=== PATIENT | female | born 1960 | race Two or more races ===

== ENCOUNTER 2022-02-18 10:06 | Outpatient (REF) | payer OTHER, SELFPAY ==
--- NOTE | ~2022-02-18 | XR_ITS ---
EXAMINATION: XR ELBOW, LEFT CLINICAL INFORMATION: Pain COMPARISON: None TECHNIQUE: Three views of the left elbow. FINDINGS: Age-indeterminate osseous fragment adjacent to the lateral epicondyle could reflect age-indeterminate avulsion fracture. Mild degenerative changes of the elbow with triceps tendon enthesopathy. No joint effusion. No dislocation. XR/XR elbow LT 2V IMPRESSION: Age-indeterminate osseous fragment adjacent to the lateral epicondyle could reflect age-indeterminate avulsion fracture. Comment correlation with history of trauma and correlation with point tenderness. No joint effusion is present. Mild degenerative changes of the elbow with triceps tendon enthesopathy.
--- NOTE | ~2022-02-18 | XR_ITS ---
EXAMINATION: XR hand RT min 3V, XR hand LT min 3V CLINICAL INFORMATION: Raynaud's syndrome without gangrene bilateral hand pain worst at second distal digit COMPARISON: None TECHNIQUE: 3 views of the bilateral hands. FINDINGS: Right hand: Fusion of the third DIP joint in flexion. There is soft tissue defect overlying the second distal phalanx with the tuft of the second distal phalanx extending to at least the skin surface without appreciable overlying soft tissue. No evelyn underlying erosion. No acute fracture. Joint spaces are otherwise maintained. Left hand: Fusion of the second DIP joint in flexion. There is osteolysis of the tuft of the second and third distal phalanges, with thinning of the overlying soft tissues. A 3 mm lucent lesion with narrow margins and central sclerosis is noted in the base of the third middle phalanx. Joint spaces are otherwise maintained. No acute fracture or dislocation. XR/XR hand RT min 3V IMPRESSION: Right hand: * Soft tissue defect overlying the right second distal phalanx, with the tuft of the second distal phalanx extending to at least the skin surface without appreciable overlying soft tissue. Recommend correlation with direct visualization. No evelyn underlying erosion however MR would be more sensitive for evaluation of any clinical concern for osteomyelitis. * Fusion of the right third DIP joint in flexion. Left hand: * There is osteolysis of the tuft of the second and third distal phalanges, with thinning of the overlying soft tissues. One differential consideration could exclude sequelae of Raynaud's syndrome given reported clinical history. * Fusion of the second DIP joint in flexion. * A 3 mm lucent lesion with narrow margins and central sclerosis in the base of the third middle phalanx, possibly reflective of an osteoid osteoma although patient is not of the typical age for this finding. Recommend CT and for further evaluation.
[2022-02-18 11:00] LABS: MANUAL DIFF FLAG NO
[2022-02-18 11:21] LABS: Basophils Percent Auto 0.4 % (0-2); Eosinophils Absolute Auto 0.1 X10*3/uL (0.0-0.4); Eosinophils Percent Auto 1.2 % (0-4); Hematocrit 34.5 % (37.0-47.0); Imm Gran Abs Auto 0.01 X10*3/uL (0.00-0.03); Imm Gran Pct Auto 0.1 % (0.0-0.4); Lymphocytes Absolute Auto 2.5 X10*3/uL (1.2-4.9); Lymphocytes Percent Auto 36.7 % (20-40); Mean Corpuscular HGB Conc 31.9 g/dl (31.0-35.0); Mean Corpuscular Hemoglobin 27.9 pg (27.0-33.0); Mean Corpuscular Volume 87.6 fL (80.0-98.0); Mean Platelet Volume 10.2 fL (9.4-12.3); Monocytes Absolute Auto 0.7 X10*3/uL (0.1-1.2); Monocytes Percent Auto 9.5 % (2-11); Neutrophils Absolute Auto 3.6 x10*3/uL (2.0-8.3); Neutrophils Percent Auto 52.1 % (45-73); Platelet Count 309 X10*3/uL (160-400); Red Blood Count 3.94 X10*6/uL (4.20-5.50); Red Cell Distribution Width 14.8 % (11.0-16.0); White Blood Count 6.9 X10*3/uL (4.8-10.8)
[2022-02-18 12:03] LABS: Alanine Aminotransferase 10 U/L (0-31); Albumin Level 4.3 g/dL (3.5-5.0); Alkaline Phosphatase 72 U/L (39-117); Anion Gap 12 (12-20); Aspartate Amino Transferase 19 U/L (5-31); Bilirubin Total 0.4 mg/dL (0.0-1.0); Blood Urea Nitrogen 8 mg/dL (9-16); Calcium 9.3 mg/dL (8.4-10.2); Carbon Dioxide 24 mmol/L (22-29); Chloride 107 mmol/L (96-108); Estimated Glomerular Filt Rate > 60; Glucose Random 99 mg/dL (60-115); Potassium 4.4 mmol/L (3.3-5.1); Sodium 139 mmol/L (135-145); Total Protein 7.5 g/dL (6.5-8.0)
[2022-02-18 12:28] LABS: TSH reflex Free T4 1.31 uIU/mL (0.32-4.0)
[2022-02-20 14:07] LABS: Anti-Centromere B Antibodies >8.0 POS AI (<1.0 NEG)
[2022-02-21 13:36] LABS: Antibody to SS-A Antigen <1.0 NEG AI (<1.0 NEG); Antibody to SS-B Antigen <1.0 NEG AI (<1.0 NEG); Scleroderma 70 Antibody <1.0 NEG AI (<1.0 NEG)
== END 2022-02-18 10:07 | disposition home or self-care (01) ==
LOC: HO.LAB 10:06
PROVIDERS: Visit Provider Nurse Practitioner Family
DX: M25.522 Pain in left elbow (principal); I73.00 Raynaud's syndrome without gangrene; L94.3 Sclerodactyly
CPT/HCPCS: 36415; 73070; 73130; 80053; 84443; 85025; 86038; 86235; 99202

== ENCOUNTER → 2022-03-06 10:47 | Outpatient (BNVA) | payer OTHER, SELFPAY | PROVIDERS: PCP Physician Assistant Medical; Visit Provider Nurse Practitioner Family | DX: I73.00 Raynaud's syndrome without gangrene (principal); L94.3 Sclerodactyly; L98.499 Non-pressure chronic ulcer of skin of other sites with unspecified severity; Z79.899 Other long term (current) drug therapy | CPT/HCPCS: 99212 ==

== ENCOUNTER 2022-03-19 14:51 | Outpatient (REF) | payer OTHER, SELFPAY ==
--- NOTE | ~2022-03-19 | MR_ITS ---
EXAMINATION: MR OF THE HAND WITH AND WITHOUT CONTRAST, RIGHT CLINICAL INFORMATION: Raynaud's syndrome without gangrene. Second digit wound. Pain. Redness. Swelling. COMPARISON: Radiographs dated 02/18/2022. TECHNIQUE: Multiplanar MR imaging was obtained through the right hand before and after intravenous administration of 5.5 mL Gadavist. FINDINGS: There is a chronic deformity at the long finger distal interphalangeal joint with palmar subluxation of the distal phalanx and remodeling of the articular surfaces at both the middle phalangeal head and distal phalangeal base. There is marrow edema signal and enhancement throughout the distal phalanx and at the distal half of the middle phalangeal base. There is low signal intensity within these regions on T1-weighted images as well as enhancement on postcontrast images, raising the possibility of osteomyelitis. Degenerative arthritis is felt to be more likely, however. Sensitivity for an overlying skin wound in this region is limited on these images due to the flexion at this level, though there is thinning of the dorsal soft tissues at the level of the middle phalangeal head. A tear of the extensor tendon in this region is presumed, though not well seen. Flexor tendon is intact. There is a wound at the distal aspect of the index finger soft tissues around the distal phalanx extending to the depth of bone. There is underlying intense edema signal and postcontrast enhancement in the majority of the distal phalanx with loss of normal fat signal intensity throughout, sparing the subarticular portion of the distal phalangeal base, consistent with osteomyelitis. No findings of septic arthritis at the DIP joint. The phalanges of the thumb, small finger, and ring finger appear relatively well preserved, though subcutaneous edema and mild enhancement are noted in the soft tissues in these regions. No abscesses are identified. Tendons appear intact at these digits without tenosynovitis. Osteoarthritis is suspected at the midcarpal and radiocarpal joints, though only partially imaged on this study. MR/MR hand RT wo/w con IMPRESSION: 1. Soft tissue wound at the distal margin of the index finger with underlying osteomyelitis throughout the distal phalanx. 2. Chronic flexion deformity and articular surface remodeling at the long finger DIP joint, likely with disruption of the extensor tendon in this region. Periarticular marrow signal abnormalities at the DIP joint involve both the middle and distal phalanges and may be degenerative in nature, though osteomyelitis is possible. Query the presence of a dorsal skin wound in this region as osteomyelitis of the phalanges would be much more likely in that setting.
== END 2022-03-19 14:52 | disposition home or self-care (01) ==
LOC: HO.MRI 14:51
PROVIDERS: Visit Provider Nurse Practitioner Family
DX: I73.00 Raynaud's syndrome without gangrene (principal); L94.3 Sclerodactyly; L98.499 Non-pressure chronic ulcer of skin of other sites with unspecified severity; K21.9 Gastro-esophageal reflux disease without esophagitis
CPT/HCPCS: 73220; A9585

== ENCOUNTER 2022-04-21 08:51 | Outpatient (REF) | payer OTHER, SELFPAY ==
--- NOTE | ~2022-04-21 | FL_ITS ---
EXAMINATION: FL BARIUM SWALLOW CLINICAL INFORMATION: Gastroesophageal reflux COMPARISON: None TECHNIQUE: Barium swallow examination is performed using fluoroscopic evaluation in addition to multiple fluoroscopic spot views. The patient is imaged both upright and prone and using both thick and thin sulfate along with effervescent granules. Barium tablet was also administered. Fluoroscopy time: 1 minute minutes DAP: 3.3 Gycm2 Images: 43 FINDINGS: The swallowing mechanism is normal. No aspiration or penetration is seen. Esophageal motility is normal. There is a small sliding-type hiatal hernia. There is significant gastroesophageal reflux. No mass or stricture is seen. The barium tablet passed freely into the stomach. FL/FL barium swallow IMPRESSION: Gastroesophageal reflux. Small sliding-type hiatal hernia.
== END 2022-04-21 08:52 | disposition home or self-care (01) ==
LOC: HO.XRAY 08:51
PROVIDERS: Visit Provider Physician Assistant
DX: I73.00 Raynaud's syndrome without gangrene (principal); K21.9 Gastro-esophageal reflux disease without esophagitis; L94.3 Sclerodactyly
CPT/HCPCS: 74220

== ENCOUNTER 2022-04-30 09:05 | Outpatient (REF) | payer OTHER, SELFPAY ==
--- NOTE | ~2022-04-30 | XR_ITS ---
EXAMINATION: XR HAND, RIGHT CLINICAL INFORMATION: Pain. COMPARISON: Radiograph of the right hand dated from 02/18/2022. TECHNIQUE: PA, lateral, and oblique views of the right hand. FINDINGS: Again noted soft tissue defect overlying the right second distal phalanx, with progression of deformity and erosion of the tuft of the second distal phalanx, worrisome for infection. Again noted ankylosis with flexion of the third DIP. Unchanged 2 mm osseous fragment abutting the ventral aspect of the tuft of the third distal phalanx, likely an osteophyte. There is decreased bone mineralization and multifocal osteoarthritis. The carpal rows are maintained. No radiopaque foreign bodies are noted. XR/XR hand RT min 3V IMPRESSION: 1. Cortical erosion and distortion of the tuft of the second distal phalanx concerning for osteomyelitis in the setting of adjacent soft tissue defect. Correlate clinically. 2. Stable ankylosis with flexion of the third DIP.
== END 2022-04-30 09:06 | disposition home or self-care (01) ==
LOC: HO.HOSX 09:05
PROVIDERS: Visit Provider Orthopaedic Surgery
DX: M79.641 Pain in right hand (principal)
CPT/HCPCS: 73130

== ENCOUNTER 2022-05-29 06:01 | Day surgery (SDC) | payer OTHER, SELFPAY ==
[2022-05-26 12:02] VITALS: BMI 25.4
--- NOTE | 2022-05-28 10:14 | P.CONAN_ITS ---
Documented by User: Vivi Rubin NP 05/28/22 10:15 HPI - Anesthesia Eval Consult details Narrative: 62yo F for Right Index DIP level Finger Amputation and I&D PMFSH Active Problems Active Problems: All Active Problems (Updated 05/28/22 @ 08:45 by Eden Paul RN) Anxiety (Acute) Depression (Acute) Raynauds disease (Acute) Sclerodactyly (Acute) Chronic GERD (Acute) Bloating (Acute) Anemia (Acute) Open wound of right index finger (Acute) Osteomyelitis of finger of right hand (Acute) Past Medical History Medical History (Updated 05/29/22 @ 06:23 by Barbara Medel) Hypothyroidism Rheumatoid arthritis Scleroderma Surgical History Surgical History (Updated 05/29/22 @ 06:18 by Barbara Medel) H/O colonoscopy H/O neck surgery Social History Social History Household Members: Family Housing: House Are you a primary care coordinator to a significant other at home: No Do you presently have visiting nurse or other home services: No Alcohol intake: current Alcohol intake frequency: a few times a month Alcohol type: beer Patient Tobacco Use Status: Never used Tobacco e-Cigarette/Vaping Use: Never Used Use of substances other than those prescribed or required for medical reasons: No Are you DNR?: No Advance Directives: No Advance Directives Information Provided: Yes service: No Current occupational status: employed 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 Allergy/AdvReac Type Severity Reaction Status Date / Time No Known Allergies Allergy Verified 05/29/22 06:19 Home Medications Medication Instructions Recorded Confirmed Last Taken Type alprazolam 0.5 mg tablet (Xanax) 0.5 mg PO DAILY PRN Anxiety 02/18/22 05/29/22 Unknown History escitalopram oxalate 20 mg tablet 20 mg PO DAILY 02/18/22 05/29/22 Unknown History levothyroxine 88 mcg capsule 88 mcg PO DAILY 02/18/22 05/29/22 Unknown History gabapentin 300 mg capsule 300 mg PO TID PRN Breakthrough Pain 04/22/22 05/29/22 Unknown History ibuprofen 600 mg tablet 600 mg PO BID PRN Pain 04/22/22 05/29/22 Unknown History amitriptyline 25 mg tablet 25 mg PO BEDTIME 04/30/22 05/29/22 Unknown History Exam Exam Date and Time: May 28, 2022 1014 Height,Weight and Vital Signs: Height 5 ft Weight 58.967 kg Pertinent Lab Results Pertinent Lab Results: Laboratory Tests 02/18/22 02/18/22 10:57 10:57 WBC 6.9 Hgb 11.0 L Hct 34.5 L Plt Count 309 Sodium 139 Potassium 4.4 Chloride 107 Carbon Dioxide 24 BUN 8 L Creatinine 0.77 Assessment and Plan Assessment Anesthesia Assessment: Chart Reviewed Documented by User: Litzy Ruffin MD 05/29/22 07:09 [facility] Past Medical History Medical History (Updated 05/29/22 @ 06:23 by Barbara Medel) Hypothyroidism Rheumatoid arthritis Scleroderma Family History Family history of problems with anesthesia: No Surgical History Surgical History (Updated 05/29/22 @ 06:18 by Barbara Medel) H/O colonoscopy H/O neck surgery History of Problems with Anesthesia: No Social History Social History Household Members: Family Housing: House Are you a primary care coordinator to a significant other at home: No Do you presently have visiting nurse or other home services: No Alcohol intake: current Alcohol intake frequency: a few times a month Alcohol type: beer Patient Tobacco Use Status: Never used Tobacco e-Cigarette/Vaping Use: Never Used Use of substances other than those prescribed or required for medical reasons: No Are you DNR?: No Advance Directives: No Advance Directives Information Provided: Yes service: No Current occupational status: employed 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 Allergy/AdvReac Type Severity Reaction Status Date / Time No Known Allergies Allergy Verified 05/29/22 06:19 Home Medications Medication Instructions Recorded Confirmed Last Taken Type alprazolam 0.5 mg tablet (Xanax) 0.5 mg PO DAILY PRN Anxiety 02/18/22 05/29/22 Unknown History escitalopram oxalate 20 mg tablet 20 mg PO DAILY 02/18/22 05/29/22 Unknown History levothyroxine 88 mcg capsule 88 mcg PO DAILY 02/18/22 05/29/22 Unknown History gabapentin 300 mg capsule 300 mg PO TID PRN Breakthrough Pain 04/22/22 05/29/22 Unknown History ibuprofen 600 mg tablet 600 mg PO BID PRN Pain 04/22/22 05/29/22 Unknown History amitriptyline 25 mg tablet 25 mg PO BEDTIME 04/30/22 05/29/22 Unknown History Exam Airway Mallampati Class: II TM Dist: >3cm Neck ROM: Full Assessment and Plan Assessment Anesthesia Assessment: Anesthesia Plan Discussed Final Anesthetic Review Family History of Problems with Anesthesia: No History of Problems with Anesthesia: No NPO: Yes ASA Class: II Final Preanesthetic Review: No Changes in Pt Med Stat, Meds/Allgs Chart Reviewed, Consent Obtained/Reviewed and Anes Risks/Benef Reviewed Patient Risk: Low Procedure Risk: Low Anesthetic Plan Anesthetic Plan: GA Disposition: Standard PACU
[2022-05-29] VITALS (10 sets, daily range): BP systolic 94–119; BP diastolic 48–69; PULSE 76–83; RESP 12–16; TEMP 36.3–37.1; O2SAT 95–99; BMI 24.7
[2022-05-29] MEDS: Lactated Ringers 1,000 ML 100 ML IVCONT (06:40)
--- NOTE | 2022-05-29 08:59 | MHC.SHP ---
Pre-Procedural Eval Section A Date of Service: 05/29/22 The patient is an INPATIENT: No Changes since office visit: No Cold of Flu in the past 2 weeks, No New Medical Problems, No Changes in Medication and No Patient answered all questions The History & Physical has been completed within 30 days and I have reviewed it.: Yes Section B Chief Complaint: Osteomyelitis,R index finger Allergies: Allergies Allergy/AdvReac Type Severity Reaction Status Date / Time No Known Allergies Allergy Verified 05/29/22 06:19 Plan I have reviewed the history and physical and performed a pertinent physical examination on my patient. No changes have occurred unless specified.
--- NOTE | 2022-05-29 09:00 | P.OP_ITS ---
Operative Note Operative Note Date of Service: 05/29/22 Narrative: Operative Note Narrative: Preop diagnosis: 1. scleroderma, right index finger distal phalanx osteomyelitis Postop diagnosis: Same Procedure: 1. right index finger middle phalanx level amputation Surgeon: Andreia Jean MD Anesthesia: General Anesthesia Findings: bleeding skin edges at closure Implants: none Tourniquet time: 0 minutes EBL: 5.0 ml Specimen: right index finger tip Drains: None Complications: None Disposition: Brought to the recovery room in stable condition Plan: Follow-up in 10-14 days for wound check, and to check pathology anticipate suture removal in 3-4 weeks based on bony healing Indications: The patient is a 62 year old woman with scleroderma, and right index finger chronic osteomyelitis . The risks and benefits of operative treatment, including but not limited to risk of damage to blood vessels, nerves, tendons, infection, recurrence, persistent pain or numbness, incomplete resolution of preoperative symptoms, or need for further surgery were discussed with the patient and they wished to proceed with surgery. Procedure: Once consent was obtained patient was brought back to the operating suite and placed in the operating table in a supine position. . Perioperative antibiotics and anesthesia was administered by the anesthesia team. A tourniquet was applied to the proximal aspect of the right upper extremity and the limb was prepped and draped in a standard surgical fashion. The tourniquet was not inflated during the case. I made a fishmouth type incision about the distal aspect of the patient's right index finger proximal to any devitalized or less than healthy tissue. The incision was made through the skin down to the level of the distal phalanx using a 15. Blade. I then used a 15 blade and tenotomy scissors to carefully dissect along the proximal aspect of the distal phalanx to the D IP joint. The distal phalanx was noted to be significantly attenuated secondary to her scleroderma and was about half the normal length. The distal phalanx and its soft tissue attachments were then excised and placed on the back table to be sent for histopathology. I then shortened the middle phalanx by a few mm using a rongeur were to allow for soft tissue closure that would not be under tension. I revised the dorsal flap of tissue to make it a couple of mm shorter to assure that we had healthy well-vascularized tissue. After this we had good bleeding at all skin edges. Neurectomies were performed assuring that the digital neurovascular bundles were proximal to our amputation site. We had good bleedin g at all of the skin edges. At this point the wound was irrigated with normal saline. The skin edges were reapproximated with 4-0 Prolene suture, and the skin closed well and without tension. A digital block was performed using some 0.5% plain ropivacaine for postop pain control and a sterile dressing was carefully applied. The patient appears to have tolerated the procedure well and with no complications. All digits were well vascularized conclusion of the case.
[2022-05-29] MEDS: ondansetron HCL 4 MG/2 ML VIAL IVPUSH (09:02)
[2022-05-29] MEDS: fentaNYL citrate/PF 100 MCG/2 ML VIAL 50 MCG IVPUSH ×2 (09:15→09:20)
[2022-05-29] MEDS: oxyCODONE HCl Immed Release 5 MG TABLET PO (09:15)
== END 2022-05-29 11:00 | disposition home or self-care (01) ==
PROVIDERS: Visit Provider Orthopaedic Surgery
PROC: (CPT 26951; principal; 2022-05-29 07:30)
DX: S61.200A Unspecified open wound of right index finger without damage to nail, initial encounter (principal); M86.641 Other chronic osteomyelitis, right hand; M34.9 Systemic sclerosis, unspecified; M06.9 Rheumatoid arthritis, unspecified; I73.00 Raynaud's syndrome without gangrene; M34.1 CR(E)ST syndrome; M35.00 Sjogren syndrome, unspecified; E03.9 Hypothyroidism, unspecified; X58.XXXA Exposure to other specified factors, initial encounter; Y93.9 Activity, unspecified; Y92.89 Other specified places as the place of occurrence of the external cause; Y99.8 Other external cause status; Z79.899 Other long term (current) drug therapy
CPT/HCPCS: 26951; 88305; 88311; J0690; J1100; J2250; J2405; J2795; J3010

== ENCOUNTER → 2022-06-06 09:27 | Outpatient (REF) | payer OTHER, SELFPAY ==
--- NOTE | 2022-06-06 09:29 | CA_ITS ---
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 The calculated ejection fraction is 60% by biplane method. - No obvious valvular pathology seen on this study. - There is no evidence of pulmonary hypertension. - There is a small loculated pericardial effusion overlying the left ventricle. Findings Left Ventricle Normal left ventricular cavity size. There is normal left ventricular wall thickness. The left ventricular systolic function is normal. The calculated ejection fraction is 60% by biplane method. There is no evidence of regional wall motion abnormalities. Diastolic function is normal for age. Right Ventricle Normal right ventricular cavity size and systolic function. Atria Both atria are normal in size. Aortic Valve There is a normal trileaflet aortic valve. There is no aortic valve stenosis. There is trace (trivial) aortic valve regurgitation. Mitral Valve The mitral valve appears normal. There is no mitral valve regurgitation. There is no mitral valve stenosis. Pulmonic Valve The pulmonic valve is likely normal. Tricuspid Valve Normal tricuspid valve structure. There is mild tricuspid valve regurgitation. There is no evidence of pulmonary hypertension. Great Vessels The aortic annulus, sinuses of valsalva, and asc aorta are normal in size. Venous The inferior vena cava is normal in size and collapses greater than 50% with inspiration. Pericardium/Pleural There is a small loculated pericardial effusion overlying the left ventricle. Prior Study Comparison No prior study available for comparison. Recommendations, Care & Conclusions No obvious valvular pathology seen on this study. Measurements 2D Linear Measurements IVSd: 0.76 0.6-0.9/0.6-1.0 cm LVIDd: 4.75 3.9-5.3/4.2-5.9 cm LVIDd Index: 2.99 2.4-3.2/2.2-3.1 cm/m2 LVIDs: 2.89 2.0-3.6 cm LVPWd: 0.75 0.7-1.1 cm LA Diam: 3.30 2.7-3.8/3.0-4.0 cm LAIDs Index: 2.08 1.5-2.3 cm/m2 LV Mass: 143.30 67-162/88-224 g LV Mass Index: 90.13 43-95/49-115 g/m2 LVOT Diam: 2.00 3.0+(-)1.3 cm 2D Systolic Function EF 4C: 63.30 >55% EF 2C: 60.50 >55% EF BiP: 60.40 >55% Mitral Valve MV Pk E: 0.83 MV PK A: 0.85 MV Decel Time: 243.00 E/A: 1.00 E'Lateral: 9.57 E'Medial: 4.68 E/E' Med: 17.70 E/E' Lat: 8.60 PHT: 71.00 MVA PHT: 3.10 Decel Winn: 3.40 Aortic Valve AoV Pk Selwyn: 1.69 AoV Mn Selwyn: 1.12 AoV VTI: 0.34 AoV Pk Grad: 11.00 Aov Mn Grad: 6.00 RYAN Cont.VTI: 1.96 LVOT LVOT Pk Selwyn: 1.02 LVOT Mn Selwyn: 0.66 LVOT VTI: 0.21 LVOT Pk Grad: 4.00 LVOT Mn Grad: 2.00 LVOT Diam: 2.00 LVOT Area: 3.14 Diastolic Function MV Pk E: 0.83 MV Pk A: 0.85 E/A: 1.00 E'Medial: 4.68 E/E' Med: 17.70 E' Laterial: 9.57 E/E' Lat: 8.60 Right Ventricle TAPSE (mm): 22.20 TVS' Selwyn: 11.70 Tricuspid Valve TR Pk Selwyn: 2.74 TR Pk Grad: 30.00 RA Press: 3.00 RVSP: 33.00 Great Vessels Aorta Sinus of Valsalva: 2.94 2.0-3.5 cm Ao Asc: 2.90 2.1-3.4 cm Updated in Other Vendor System with Status of Final Hunter Epstein MD electronically signed on 06/08/2022 11:12:22 AM with status of Final
--- NOTE | 2022-06-06 17:08 | PFT_ITS ---
INDICATION: Raynaud phenomenon syndrome. SPIROMETRY: The FEV1/FVC 82% with an FEV1 of 2.01 L, which is 95% predicted, FVC 2.42 L, which is 89% predicted. No significant response to bronchodilators noted. Maximum voluntary ventilation 84% predicted. LUNG VOLUMES: Total lung capacity 85% predicted. DIFFUSION CAPACITY: DLCO 47% predicted. COMPARISONS: None. INTERPRETATION: No obstructive nor restrictive ventilatory defects have been identified. No significant response to bronchodilators noted. Normal maximum voluntary ventilation. Lung volumes are low normal. However, the patient does have a moderate isolated diffusion impairment. Need to consider underlying pulmonary vascular conditions, specially with history of Raynaud's. Pulmonary consultation is warranted. Should also correct for hemoglobin. Clinical correlation warranted. MD DEJAH Leblanc/JONAS / [id number]
== END ==
LOC: HO.CARD 09:27
PROVIDERS: Visit Provider Nurse Practitioner Family
DX: I73.00 Raynaud's syndrome without gangrene (principal)
CPT/HCPCS: 93306; 94060; 94727; 94729

== ENCOUNTER 2022-06-09 17:59 | Outpatient (REF) | payer OTHER, SELFPAY | END 2022-06-09 18:00 | disposition home or self-care (01) | LOC: HO.HOSX 17:59 | PROVIDERS: Visit Provider Orthopaedic Surgery | DX: Z13.89 Encounter for screening for other disorder (principal) ==

== ENCOUNTER 2022-06-10 12:40 | Outpatient (REF) | payer OTHER, SELFPAY ==
--- NOTE | ~2022-06-10 | XR_ITS ---
EXAMINATION: XR HAND, RIGHT CLINICAL INFORMATION: Pain in right hand COMPARISON: 04/30/2022 TECHNIQUE: PA, lateral, and oblique views of the right hand. FINDINGS: There has been interval prior amputation of the second digit at the mid to distal middle phalanx. Again seen is subluxation and severe osteoarthritis at the third distal interphalangeal joint similar to the prior study. Unchanged ossific fragment adjacent the distal tuft of the third distal phalanx. No acute osseous abnormality. XR/XR hand RT min 3V IMPRESSION: Interval amputation of the second digit at the level of the mid to distal middle phalanx. Similar appearance of subluxation and severe osteoarthritis at the third distal interphalangeal joint.
== END 2022-06-10 12:41 | disposition home or self-care (01) ==
LOC: HO.HOSX 12:40
PROVIDERS: Visit Provider Physician Assistant
DX: M79.641 Pain in right hand (principal)
CPT/HCPCS: 73130

== ENCOUNTER 2022-06-23 11:20 | Outpatient (REF) | payer OTHER, SELFPAY ==
--- NOTE | ~2022-06-23 | CT_ITS ---
EXAMINATION: CHEST CT HIGH-RESOLUTION WITHOUT CONTRAST CLINICAL INFORMATION: Raynaud syndrome COMPARISON: None TECHNIQUE: Axial images through the chest without contrast. Thin cut high-resolution axial images. No expiratory images. Sagittal and coronal reconstructions on the technologist workstation. Patient dose 1 1 7 mg/cm. Expiratory imaging not performed. This CT examination was performed using dose optimization techniques as appropriate, variously including the following: *Automated exposure control *Adjustment of mA and/or kV according to patient size (this includes techniques or standardized protocols for targeted exams where dose is matched to indication/reason for exam; i.e. extremities or head) *Use of iterative reconstruction technique FINDINGS: The lungs are clear. No evidence of interstitial lung disease. No endobronchial or endotracheal lesion. No enlarged hilar or mediastinal lymph nodes. The esophagus is slightly distended and filled with fluid. Normal heart size. Trace pericardial effusion. Minimal coronary artery calcification. No pleural effusion or pleural thickening. No chest wall mass or enlarged axillary lymph nodes. Images through the upper abdomen are unremarkable. Degenerative changes of the spine. Schmorl's node in the superior endplate of the T12 vertebral body. Postsurgical changes to the lower cervical spine. CT/CT chest wo con - High Res IMPRESSION: No evidence of interstitial lung disease. Slightly distended and fluid filled esophagus. Trace pericardial effusion.
== END 2022-06-23 11:21 | disposition home or self-care (01) ==
LOC: HO.CT 11:20
PROVIDERS: Visit Provider Nurse Practitioner Family
DX: I73.00 Raynaud's syndrome without gangrene (principal); R94.2 Abnormal results of pulmonary function studies
CPT/HCPCS: 71250

== ENCOUNTER 2022-06-24 | Outpatient (REF) | payer OTHER, SELFPAY ==
--- NOTE | ~2022-06-24 | XR_ITS ---
EXAMINATION: XR HAND, RIGHT CLINICAL INFORMATION: M79.643 - Pain in unspecified hand COMPARISON: Radiographs right hand 06/10/2022, 04/30/2022 TECHNIQUE: Right hand is imaged in 3 views. FINDINGS: There has been recent amputation index finger middle phalanx at junction neck and head. There is overlying dressing. There is no periostitis. No gas tracking in soft tissues. No interval destructive process. Severe osteoarthritic changes third finger DIP joint with palmar subluxation distal phalanx is again noted. Remainder of bony structures are unremarkable. XR/XR hand RT min 3V IMPRESSION: -Index finger amputation distal middle phalanx similar to prior exam. -No periostitis or interval destructive process. No gas tracking in soft tissues. -Severe osteoarthritic changes third finger DIP joint with palmar subluxation stable.
== END 2022-06-24 00:01 | disposition home or self-care (01) ==
LOC: HO.HOSX
PROVIDERS: Visit Provider Physician Assistant
DX: M79.641 Pain in right hand (principal)
CPT/HCPCS: 73130

== ENCOUNTER 2022-06-27 15:09 | Outpatient (REF) | payer OTHER, SELFPAY ==
[2022-06-27 15:19] LABS: MANUAL DIFF FLAG NO
[2022-06-27 15:22] LABS: Basophils Absolute Auto 0.1 X10*3/uL (0.0-0.2); Basophils Percent Auto 0.8 % (0-2); Eosinophils Absolute Auto 0.2 X10*3/uL (0.0-0.4); Eosinophils Percent Auto 2.8 % (0-4); Hematocrit 33.9 % (37.0-47.0); Hemoglobin 10.9 g/dl (12.0-16.0); Imm Gran Abs Auto 0.01 X10*3/uL (0.00-0.03); Imm Gran Pct Auto 0.2 % (0.0-0.4); Lymphocytes Absolute Auto 2.9 X10*3/uL (1.2-4.9); Lymphocytes Percent Auto 46.2 % (20-40); Mean Corpuscular HGB Conc 32.2 g/dl (31.0-35.0); Mean Corpuscular Hemoglobin 29.1 pg (27.0-33.0); Mean Corpuscular Volume 90.6 fL (80.0-98.0); Mean Platelet Volume 9.4 fL (9.4-12.3); Monocytes Absolute Auto 0.8 X10*3/uL (0.1-1.2); Monocytes Percent Auto 12.5 % (2-11); Neutrophils Absolute Auto 2.4 x10*3/uL (2.0-8.3); Neutrophils Percent Auto 37.5 % (45-73); Platelet Count 281 X10*3/uL (160-400); Red Blood Count 3.74 X10*6/uL (4.20-5.50); Red Cell Distribution Width 16.4 % (11.0-16.0); White Blood Count 6.3 X10*3/uL (4.8-10.8)
[2022-06-27 15:40] LABS: Alanine Aminotransferase 15 U/L (0-31); Albumin Level 4.5 g/dL (3.5-5.0); Alkaline Phosphatase 99 U/L (39-117); Anion Gap 17 (12-20); Aspartate Amino Transferase 21 U/L (5-31); Bilirubin Total 0.2 mg/dL (0.0-1.0); Blood Urea Nitrogen 9 mg/dL (9-16); C Reactive Protein 0.53 mg/dL (< or = 0.50); Calcium 9.6 mg/dL (8.4-10.2); Carbon Dioxide 24 mmol/L (22-29); Chloride 105 mmol/L (96-108); Estimated Glomerular Filt Rate > 60; Glucose Random 102 mg/dL (60-115); Potassium 4.6 mmol/L (3.3-5.1); Sodium 141 mmol/L (135-145); Total Protein 7.9 g/dL (6.5-8.0)
[2022-06-27 16:01] LABS: Erythrocyte Sedimentation Rate 28 MM/HR (0-20)
== END 2022-06-27 15:10 | disposition home or self-care (01) ==
LOC: HO.LAB 15:09
PROVIDERS: Visit Provider Nurse Practitioner Family
DX: M34.1 CR(E)ST syndrome (principal); I73.00 Raynaud's syndrome without gangrene
CPT/HCPCS: 36415; 80053; 85025; 85652; 86140

== ENCOUNTER → 2022-08-26 15:31 | Outpatient (BNVA) | payer OTHER, SELFPAY | PROVIDERS: PCP Physician Assistant Medical; Visit Provider Orthopaedic Surgery | DX: M86.9 Osteomyelitis, unspecified (principal) ==

== ENCOUNTER → 2022-09-11 12:35 | Outpatient (BNVA) | payer OTHER, SELFPAY | PROVIDERS: PCP Physician Assistant Medical; Visit Provider Nurse Practitioner Family | DX: Z13.89 Encounter for screening for other disorder (principal) ==

== ENCOUNTER → 2022-11-25 16:07 | Outpatient (BNVA) | payer OTHER, SELFPAY | PROVIDERS: PCP Physician Assistant Medical; Visit Provider Nurse Practitioner Family | DX: Z13.89 Encounter for screening for other disorder (principal) ==

== ENCOUNTER 2023-04-13 14:37 | Outpatient (AMB) | payer OTHER, SELFPAY ==
--- NOTE | 2023-04-13 14:40 | A.OFFVIS_ITS ---
Intake Vital Signs 04/13/23 14:41 Height 5 ft Weight 126 lb 15.78 oz BMI 24.8 BP 104/62 Blood Pressure Location Rt brachial Position Sitting Temp 98.2 F Temp Source Skin Intake Visit Reasons: CREST Syndrome Intake Note: Here for CREST syndrome follow up. c/o right middle and ring finger swelling Export Administrator Required: No Accompanied by: Self / Same As Patient Allergies No Known Allergies Allergy (Verified 04/13/23 14:41) Medication List - Last Reconciled 04/13/23 by Hussein Hamilton MD acetaminophen ER (Tylenol Arthritis Pain) 650 mg PO Q8H PRN alprazolam (Xanax) 0.5 mg PO DAILY PRN amitriptyline 25 mg PO BEDTIME amlodipine 10 mg (2 x 5 mg) PO DAILY cevimeline 1 cap PO TID cyclobenzaprine mg PO escitalopram oxalate 20 mg PO DAILY esomeprazole magnesium (Nexium) 40 mg PO DAILY 30 days ferrous sulfate 325 mg PO DAILY gabapentin 300 mg PO TID PRN hydrocodone-acetaminophen 5-325 mg 1 tab PO BID PRN ibuprofen 600 mg PO BID PRN levothyroxine 88 mcg PO DAILY lidocaine 5% 1 appl topical BID-QID PRN naloxone 4 mg/actuation (Narcan) 4 mg intranasal Q2M PRN tadalafil 40 mg (2 x 20 mg) PO DAILY HPI HPI Comments History of Present Illness Details The patient presents today for 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 She is mostly symptomatic at this point from her Raynaud's disease. She has had more activity of ischemia and its associated symptoms in the right 3rd finger. She is disturbed that this may progress to auto amputation as did the distal phalanx of the 2nd finger in that hand. She remains on amlodipine 5 mg b.i.d., and Cialis 40 mg daily. She knows the Cialis is helpful because when she misses it for a few days she gets more ischemic symptoms. She also he uses the hydrocodone at night mostly for ischemia but sometimes during the day as well. She has a topical lidocaine ointment she puts on at night at times. She remains on gabapentin 300 t.i.d. and ibuprofen 600 b.i.d. both p.r.n. as well. She is on Nexium for heartburn and that seems to be controlling things. The cevimeline has helped with her dry mouth but she does still get intermittent oral ulcers. These do seem to respond to courses of prednisone even at a relatively low dose of 5-10 mg daily for a few days. FORMERLY [facility] Medical History Hypothyroidism Rheumatoid arthritis Scleroderma Surgical History H/O colonoscopy H/O neck surgery History of amputation of finger of right hand Social History (Updated 04/13/23 @ 14:46 by ELIZABETH Durbin) Household Members: Family Housing: House Are you a primary day care supervisor to a significant other at home: No Do you presently have visiting nurse or other home services: No 75 years or older and lives alone: No Alcohol intake: current Alcohol intake frequency: a few times a month Alcohol type: beer Patient Tobacco Use Status: Current someday Tobacco user e-Cigarette/Vaping Use: Never Used service: No Current occupational status: employed 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 Negative for vision change, headaches and dizziness ENT Details: Dry mouth and oral ulcers as noted above. Negative for hearing change, tinnitus, nose bleeds. Card Details: Negative chest pain, edema and syncope Resp Details: Negative for SOB, cough and wheezing GI Details: Occasional dysphagia, heartburn helped with the pantoprazole. Negative indige stion/heartburn, nausea, abdominal pain, bowel changes, diarrhea, constipation and bloody stool. Skin/Breast Details: Raynaud's symptoms as noted above. Negative for itching, rash, hives, sun sensitivity, and skin cancer Psych Details: Anxiety about her disease and its difficulties in treatment. Endo Details: Negative for polyuria and polydypsia Jay/Lymph Details: Negative for excessive bruising or bleeding. Physical Exam Vital Signs: Last Vital Signs Temp 98.2 F 04/13/23 14:41 BP 104/62 04/13/23 14:41 BMI result Body Mass Index 24.8 APPEARANCE: Patient in no acute distress EYES no redness, pupils equal and reactive to light, eyelids normal THROAT/MOUTH:? Oral mucosa moist.? Beneath the tongue it looks like there is an early canker sore developing. No other ulcerations. HEART:? Regular rhythm, S1-S2 heard, no murmurs, rubs or gallops. LUNG:? Clear to auscultation, respiratory rate regular and nonlabored. EXTREMITIES:? No edema, no calf tenderness, normal peripheral pulses. SKIN: ? Telangiectasias noted scattered on index fingers. Photo of the fingers: The tip of the right 3rd and left 3rd finger or mild to moderately tender. There is minimal tenderness at the left 2nd and right 4th fingertips. There is no obvious signs of infection or drainage. JOINT EXAM:?? Cervical Spine:? Full range of motion without pain; no tenderness. Thoracic Spine:? No scoliosis.? No tenderness on palpation. Lumbar Spine: Alignment normal.? Full range of motion without pain, no tenderness. Hands: LEFT:? 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 Tight skin noted extending from the nail up to the MCP on all digits.? DIP of 2nd digit with healed deformities. Tenderness to palpation of 3rd DIP near the nail with flat white shallow erosion medially, skin from the DIP to the tip of the finger is slightly dusky, no erythema, swelling, warmth or drainage noted. ? RIGHT:? 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 Tight skin noted extending from the nail up to the MCP and all digits.? DIP of the 2nd digit absent , surgical site is healed.? Tenderness to palpation of the 3rd DIP near the nail, skin from the DIP to the tip of the finger is slightly dusky healing erosion noted,? no erythema swelling, warmth or drainage noted. 4th DIP tender and slightly dusky over the pad of finger. Wrists:? Normal pain-free range of motion without tenderness, swelling, increased warmth or erythema. Elbows: LEFT:? Normal pain free range of motion without, swelling, increased warmth or erythema.? No tenderness to palpation over the olecranon, no swelling, there is an area of dry skin with a shallow opening in the center, no drainage, erythema or increased warmth noted.? No signs symptoms of infection noted. ? RIGHT: Normal pain-free range of motion without tenderness, swelling, increased warmth or erythema. Shoulders:?? Full range of motion without pain. No tenderness, weakness, swelling, increased warmth or erythema. Hips: Full range of motion without pain. Hip bursa:? No tenderness. Knees:? Normal pain-free range of motion without tenderness, swelling, increased warmth or erythema.? There is no effusion or crepitation Ankles:? Normal pain-free range of motion without tenderness, swelling, increased warmth or erythema.? There is no effusion or crepitation. Feet:? Normal pain-free range of motion without tenderness, swelling, increased warmth or erythema.? There is no effusion or crepitation. 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 This does not carline well for the winter time. We will see if we can switch to nifedipine, 10 mg b.i.d. for a week and then t.i.d.. We could possibly see if there might be some better improvement in her Raynaud's control with that calcium channel ralph rather than the amlodipine. We could push the dose higher with the nifedipine if needed if her blood pressure tolerates it. She seems to have recurrent oral ulcers which sounds like a lupus-like manifestation of her CREST. It's response to prednisone is also suggestive of an autoimmune component. We discussed that we could try some hydroxychloroquine in an effort to prevent those from occurring. She will get an eye exam and then get back to me with the findings and we could start the hydroxychloroquine in the near future. I am going to check some acute phase reactants, chemistries, and CBC at this visit. Follow-up in 3 months but hopefully will get better control of the Raynaud's and her oral ulcers with the above measures. Her evaluation and history, physical exam, and discussion of therapeutic options took 44 minutes. [id number] Orders: Orders C Reactive Protein Today D50.9 - Iron deficiency anemia, unspecified, M34.1 - CR(E)ST syndrome Protein Creatinine Ratio, Ur Today D50.9 - Iron deficiency anemia, unspecified, M34.1 - CR(E)ST syndrome Complete Blood Count Auto Diff Today D50.9 - Iron deficiency anemia, unspecified, M34.1 - CR(E)ST syndrome Erythrocyte Sedimentation Rate Today D50.9 - Iron deficiency anemia, unspecified, M34.1 - CR(E)ST syndrome Comprehensive Met. Panel Today D50.9 - Iron deficiency anemia, unspecified, M34.1 - CR(E)ST syndrome Medications: New nifedipine Start with one cap twice a day for a week 10 mg PO TID 90 caps 1RF I73.00 - Raynaud's syndrome without gangrene prednisone For oral ulcers: 3 daily for 2 days, 2 daily for 2 days, 1 daily for 2 days 36 tabs 1RF M34.1 - CR(E)ST syndrome Discontinued amlodipine Discontinued Reason: Doctor's Order 10 mg (2 x 5 mg) PO DAILY 60 tabs 5RF I73.00 - Raynaud's syndrome without gangrene Coding Level of Care Code Est Pt Level 5 (73684) Diagnoses Raynauds disease I73.00 Iron deficiency anemia D50.9 CREST syndrome M34.1
[2023-04-13 14:41] VITALS: BP 104/62; TEMP 36.8; BMI 24.8
== END 2023-04-13 16:02 | disposition home or self-care (01) ==
PROVIDERS: PCP Physician Assistant Medical; Visit Provider Internal Medicine Rheumatology
DX: M34.1 CR(E)ST syndrome (principal); I73.00 Raynaud's syndrome without gangrene; D50.9 Iron deficiency anemia, unspecified
CPT/HCPCS: 99215

== ENCOUNTER → 2023-04-13 14:37 | Outpatient (BNVA) | payer OTHER, SELFPAY | PROVIDERS: PCP Physician Assistant Medical; Visit Provider Internal Medicine Rheumatology ==

== ENCOUNTER 2023-06-22 14:23 | Outpatient (REF) | payer OTHER, MEDICAID, SELFPAY ==
[2023-06-22 15:42] LABS: MANUAL DIFF FLAG NO
[2023-06-22 16:06] LABS: Basophils Percent Auto 0.6 % (0-2); Eosinophils Absolute Auto 0.1 X10*3/uL (0.0-0.4); Eosinophils Percent Auto 1.4 % (0-4); Hematocrit 34.6 % (37.0-47.0); Hemoglobin 11.4 g/dl (12.0-16.0); Imm Gran Abs Auto 0.02 X10*3/uL (0.00-0.03); Imm Gran Pct Auto 0.3 % (0.0-0.4); Lymphocytes Absolute Auto 2.3 X10*3/uL (1.2-4.9); Mean Corpuscular HGB Conc 32.9 g/dl (31.0-35.0); Mean Corpuscular Hemoglobin 31.5 pg (27.0-33.0); Mean Corpuscular Volume 95.6 fL (80.0-98.0); Mean Platelet Volume 9.8 fL (9.4-12.3); Monocytes Absolute Auto 0.8 X10*3/uL (0.1-1.2); Monocytes Percent Auto 11.9 % (2-11); Neutrophils Absolute Auto 3.1 x10*3/uL (2.0-8.3); Neutrophils Percent Auto 49.8 % (45-73); Platelet Count 321 X10*3/uL (160-400); Red Blood Count 3.62 X10*6/uL (4.20-5.50); Red Cell Distribution Width 14.9 % (11.0-16.0); White Blood Count 6.3 X10*3/uL (4.8-10.8)
[2023-06-22 16:31] LABS: Alanine Aminotransferase 9 U/L (0-31); Albumin Level 4.2 g/dL (3.5-5.0); Alkaline Phosphatase 69 U/L (39-117); Anion Gap 13 (12-20); Aspartate Amino Transferase 15 U/L (5-31); Bilirubin Total 0.3 mg/dL (0.0-1.0); Blood Urea Nitrogen 9 mg/dL (9-16); C Reactive Protein 0.35 mg/dL (< or = 0.50); Calcium 9.6 mg/dL (8.4-10.2); Carbon Dioxide 23 mmol/L (22-29); Chloride 106 mmol/L (96-108); Estimated Glomerular Filt Rate > 60; Glucose Random 106 mg/dL (60-115); Potassium 3.9 mmol/L (3.3-5.1); Sodium 138 mmol/L (135-145); Total Protein 7.7 g/dL (6.5-8.0)
[2023-06-22 16:55] LABS: Erythrocyte Sedimentation Rate 25 MM/HR (0-20)
== END 2023-06-22 14:24 | disposition home or self-care (01) ==
LOC: HO.LAB 14:23
PROVIDERS: Internal Medicine Rheumatology; PCP Physician Assistant Medical; Visit Provider Nurse Practitioner Family
DX: M34.1 CR(E)ST syndrome (principal); D50.9 Iron deficiency anemia, unspecified
CPT/HCPCS: 36415; 80053; 85025; 85652; 86140

== ENCOUNTER 2023-06-22 14:23 | Outpatient (AMB) | payer OTHER, MEDICAID, SELFPAY ==
--- NOTE | 2023-06-22 14:28 | MHC.OFFVIS ---
Intake Vital Signs 06/22/23 14:30 Height 5 ft Weight 127 lb 13.89 oz BMI 25.0 BP 110/62 Blood Pressure Location Rt brachial Position Sitting Pulse 100 Pulse Source Palpation Temp 97.1 F Temp Source Skin Intake Visit Reasons: CREST Syndrome Intake Note: Patient presents today to follow up on CREST Syndrome. [employer] Consultant Required: No Accompanied by: Self / Same As Patient Allergies No Known Allergies Allergy (Verified 04/13/23 14:41) HPI HPI Comments History of Present Illness Details Gisela, 63yoF presents today for follow-up of CREST syndrome. She is mostly symptomatic at this point from her Raynaud's disease. She has noticed improvement to her fingers since she started Nefidipine 10 mg QD since last visit. She has had less activity of ischemia and its associated symptoms in the right 3rd finger. She is optimistic that this will slow progression and prevents further amputation as did the distal phalanx of the 2nd finger in that hand. She remains on amlodipine 5 mg b.i.d., and Cialis 40 mg daily. She knows the Cialis is helpful because when she misses it for a few days she gets more ischemic symptoms. She also he uses the hydrocodone at night mostly for pain but sometimes during the day as well. She has a topical lidocaine ointment she puts on at night at times. She remains on gabapentin 300 t.i.d. and ibuprofen 600 b.i.d. both p.r.n. as well. She is on Nexium for heartburn and that seems to be controlling things. The cevimeline has helped with her dry mouth but she does still get intermittent oral ulcers which do respond to courses of prednisone even at a relatively low dose of 5-10 mg daily for a few days. She denies oral ulcers since last visit but reports that the toothpaste is very harsh and coates her mouth. She sometimes misses her dose of cevimeline and finds that her mouth coates more at these times and her oral tissue often sticks to her teeth and lips are dry. Gisela has not yet seen the eye MD and questions if she has to start HCQ given that Nifidipine has improved her fingers She is akso concerned about the out of pocket cost to her for her Health care bills. REPLACED BY [facility] Medical History (Updated 06/23/23 @ 11:03 by MARGRET Garcia) Osteoporosis screening GERD (gastroesophageal reflux disease) Anxiety and depression Hypothyroidism Scleroderma Rheumatoid arthritis Surgical History History of esophagogastroduodenoscopy (EGD) History of amputation of finger of right hand H/O colonoscopy H/O neck surgery Family History (Updated 06/22/23 @ 14:31 by ELIZABETH Durbin) Other Scleroderma Social History (Updated 06/22/23 @ 14:32 by ELIZABETH Durbin) Household Members: Family Housing: House Are you a primary career development coordinator to a significant other at home: No Do you presently have visiting nurse or other home services: No 75 years or older and lives alone: No Alcohol intake: current Alcohol intake frequency: a few times a month Alcohol type: beer Patient Tobacco Use Status: Current someday Tobacco user e-Cigarette/Vaping Use: Never Used service: No Current occupational status: employed 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 Oral mucosa dry, dry lips.? No ulcerations seen. small oral cavity and HEART:? Regular rhythm, S1-S2 heard, no murmurs, rubs or gallops. LUNG:? Clear to auscultation, respiratory rate regular and nonlabored. EXTREMITIES:? No edema, no calf tenderness, normal peripheral pulses. SKIN: ? Telangiectasias noted scattered on index fingers. Dimpling and thickened skin at chin, furrowing upper lip Photo of the fingers: The tip of the right 3rd and left 3rd finger or mild to moderately tender. There is minimal tenderness at the left 2nd and right 4th fingertips. There is no obvious signs of infection or drainage. JOINT EXAM:?? Cervical Spine:? Full range of motion without pain; no tenderness. Thoracic Spine:? No scoliosis.? No tenderness on palpation. Lumbar Spine: Alignment normal.? Full range of motion without pain, no tenderness. Hands: LEFT:? 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 Tight skin noted extending from the nail up to the MCP on all digits.? DIP of 2nd digit with healed deformities. Tenderness to palpation of 3rd DIP near the nail with flat white shallow erosion medially, skin from the DIP to the tip of the finger is no longer dusky, no erythema, swelling, warmth or drainage noted. ? RIGHT:? 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 Tight skin noted extending from the nail up to the MCP and all digits.? DIP of the 2nd digit absent , surgical site is healed.? Tenderness to palpation of the 3rd DIP near the nail, skin from the DIP to the tip of the finger is no longer dusky, ulcer is smaller and continues to healing,? no erythema swelling, warmth or drainage noted. 4th DIP tender. Though the digits continue with tenderness, the perfusion has improved and so improved color. Wrists:? Normal pain-free range of motion without tenderness, swelling, increased warmth or erythema. Elbows: LEFT:? Normal pain free range of motion without, swelling, increased warmth or erythema.? No tenderness to palpation over the olecranon, no swelling, there is an area of dry skin with a shallow opening in the center, no drainage, erythema or increased warmth noted.? No signs symptoms of infection noted. ? RIGHT: Normal pain-free range of motion without tenderness, swelling, increased warmth or erythema. Shoulders:?? Full range of motion without pain. No tenderness, weakness, swelling, increased warmth or erythema. Hips: Full range of motion without pain. Hip bursa:? No tenderness. Knees:? Normal pain-free range of motion without tenderness, swelling, increased warmth or erythema.? There is no effusion or crepitation Ankles:? Normal pain-free range of motion without tenderness, swelling, increased warmth or erythema.? There is no effusion or crepitation. Feet:? Normal pain-free range of motion without tenderness, swelling, increased warmth or erythema.? There is no effusion or crepitation. Results Reviewed Results Reviewed: Laboratory Tests 06/27/22 06/27/22 06/22/23 15:18 15:18 15:41 RBC 3.74 L 3.62 L Hgb 10.9 L 11.4 L Hct 33.9 L 34.6 L Neut % (Auto) 37.5 L Lymph % (Auto) 46.2 H [place] % (Auto) 12.5 H 11.9 H ESR 28 H 25 H C-Reactive Protein 0.53 H 0.35 Assessment & Plan Assessment & Plan (1) CREST syndrome: Code(s): M34.1 - CR(E)ST syndrome (2) Raynauds disease: Code(s): I73.00 - Raynaud's syndrome without gangrene Qualifiers: Raynaud?s-associated gangrene presence: without gangrene Qualified Code(s): I73.00 - Raynaud's syndrome without gangrene (3) Osteoporosis screening: Code(s): Z13.820 - Encounter for screening for osteoporosis (4) Iron deficiency anemia: Code(s): D50.9 - Iron deficiency anemia, unspecified Qualifiers: Iron deficiency anemia type: unspecified iron deficiency Qualified Code(s): D50.9 - Iron deficiency anemia, unspecified Plan #LUISA - Gisela has Crest syndrome with continued symptomatic Raynaud's disease. The Raynauds with ulceration is active irrespective of the weather so she continues with ulceration to her fingers during the summer months. The switch from Amlodopine 5mg to nifedipine, 10 mg b.i.d. for a week and then t.i.d. has been effective. There is better improvement in her Raynaud's control with that calcium channel ralph rather than the amlodipine. We will continue to monitor to ensure that her blood pressure tolerates it. She also has recurrent oral ulcers and dry mouth which are some of the oral manifestation of CREST. I also think her mouth is getting smaller (Microstomia). The literature shows that, The oral manifestations of CREST include?microstomia, xerostomia, telangietasia, increased decayed, missing and filled teeth. [3,5?7] The tongue can also become rigid, making speech and swallowing difficult. The soft tissues around the temperomandibular joint were also affected, which results in pseudoankylosis. Rayshawn R, Anthony DS, Rayshawn P. Oral and periodontal manifestations associated with systemic sclerosis: A case series and review. J Soc Periodontol. 2012 Nov;16(2):271-4. doi: 10.4103/[id number]. PMID: 16024122; PMCID: [id number]. Patient has not yet had the eye exam done as agreed. She thought since the Nifidipine improved her fingers then it would not be necessary to start Hydroxychloroquine. However, I recommend that HCQ be started. On PE, there is evidence of orafacial fibrosis - circumoral furrows/perioral wistle lines, skin thickening and dimpling on her chin. The teeth are also shifting and patient also states that she cannot open her mouth as wide as before. In addition I think she has a more systemic involvement which evidences Limited Cutaneous Systemic Sclerosis (lSSc). At this time there is no indication of ILD or PHTN that can accompany lSSc but we will continue to monitor. Follow-up in 4 months but hopefully patient will have the eye exam and we can start the HCQ before next visit. HCQ can help with Raynaud's and her oral ulcers and also slow down the skin thickening given its mechanism of action (MOA). The most-commonly postulated model of disease progression in Systemic sclerosis (SSc) is based on the interplay between endothelial damage and tissue repair. Hydroxychloroquine (HCQ) is commonly used in systemic sclerosis (SSc) for the management of joint involvement [1]. In addition, HCQ showed to exert a protective role on endothelial dysfunction in several pathologic conditions [2] but no data exist in SSc. Stuart?F,?Irace?R,?Borgia?A, et al [id number]?HYDROXYCHLOROQUINE SIGNIFICANTLY REDUCES SERUM MARKERS OF ENDOTHELIAL INJURY AND MODESTO VIDEOCAPILLAROSCOPY SCORE IN SYSTEMIC SCLEROSIS: A 3-MONTHS PROSPECTIVE OBSERVATIONAL STUDY Annals of the Rheumatic Diseases?2019;78:837-838. #Osteoporosis Screening: She has elevated risk given her continued used of PPI, small frame and Autoimmune Disease Pathology - Will order Bone density #TRACY - Being Followed by PCP F/U 4 mths, Labs today Note Nifedipine relaxes coronary smooth muscle and produces coronary vasodilation, which, in turn, improves myocardial oxygen delivery; adverse reactions occur predominantly with short-acting formulations and include peripheral edema, headache, dizziness, and tachycardia; calcium channel blockers may worsen gastroesophageal reflux; SR formulations are associated with fewer adverse effects. Orders: Orders XR DEXA axial skeleton 06/22/23 M34.1 - CR(E)ST syndrome, Z13.820 - Encounter for screening for osteoporosis Medications: New nitroglycerin 2% allow nitrate-free interval of approx. 10-12 hrs per 24-hour period 1 inch transdermal Q6H PRN 60 grams 0RF severe pain (scale score 7-10), Severe Raynaud's I73.00 - Raynaud's syndrome without gangrene, M34.1 - CR(E)ST syndrome Coding Level of Care Code Est Pt Level 5 (19795) Diagnoses CREST syndrome M34.1 Raynaud's disease without gangrene I73.00 Raynaud?s-associated gangrene presence: without gangrene Osteoporosis screening Z13.820 Iron deficiency anemia, unspecified iron deficiency anemia type D50.9 Iron deficiency anemia type: unspecified iron deficiency
[2023-06-22 14:30] VITALS: BP 110/62; PULSE 100; TEMP 36.2; BMI 25.0
== END 2023-06-22 15:18 | disposition home or self-care (01) ==
PROVIDERS: PCP Physician Assistant Medical; Visit Provider Nurse Practitioner Family
DX: M34.1 CR(E)ST syndrome (principal); I73.00 Raynaud's syndrome without gangrene; D50.9 Iron deficiency anemia, unspecified
CPT/HCPCS: 99214

== ENCOUNTER 2023-07-15 13:46 | Outpatient (REF) | payer OTHER, MEDICAID, SELFPAY ==
--- NOTE | ~2023-07-15 | MM_ITS ---
EXAMINATION: BONE DENSITOMETRY CLINICAL INDICATION: Screening for osteoporosis. COMPARISON: This is the patient's baseline examination. TECHNIQUE: Using a Share0 DXA System (software version: 13.1) manufactured by [employer], dual-energy x-ray absorptiometry was performed of the lumbar spine and left hip. The images are of good technical quality. Summary results are attached. FINDINGS: AP SPINE L1-L4: BMD 0.897 g/cm2, Z-score -0.7, T-score -2.4, osteopenia. LEFT FEMUR, NECK: BMD 0.750 g/cm2, Z-score -0.5, T-score -2.1, osteopenia. LEFT FEMUR, TOTAL: BMD 0.766 g/cm2, Z-score -0.7, T-score -1.9, osteopenia. IDENTIFIED RISK FACTORS: Rheumatoid arthritis. Secondary osteoporosis (hyperthyroidism). Menopause. HISTORY OF FRACTURE: None listed. MEDICATIONS: None listed. MM/XR DEXA axial skeleton IMPRESSION: 1. DIAGNOSIS: Osteopenia based on the lowest T-score value of -2.4 in the lumbar spine applying World Health Organization criteria. 2. 10-YEAR FRACTURE RISK PREDICTION, FRAX: Major osteoporotic fracture (clinical spine, forearm, hip or shoulder) 7.8%. Hip fracture 1.3%. 3. Treatment Recommendations: NOF guidelines recommend consideration for treatment in postmenopausal women and men age 50 and older presenting with the following: -A hip or vertebral (clinical or morphometric) fracture. -T-score less than or equal to -2.5 at the femoral neck or spine after appropriate evaluation to exclude secondary causes. -Low bone mass at the hip or spine and a 10-year fracture probability by FRAX of greater than or equal to 3% for hip fracture or greater than or equal to 20% for major osteoporotic fracture based on the [place] adapted WHO algorithm. 4. Other Recommendations: All treatment decisions require clinical judgment and consideration of individual patient factors, including patient preferences, comorbidities, previous drug use, risk factors not captured in the FRAX model (e.g. frailty, falls, vitamin D deficiency, increased bone turnover, interval significant decline in bone density) and possible under or overestimation of fracture risk by FRAX. Additional medical evaluation for secondary cause of low bone mineral density may be appropriate. FUTURE SCAN RECOMMENDATION: People with diagnosed cases of osteoporosis or at high risk for fracture should have regular bone mineral density tests. For patients eligible for Medicare, routine testing is allowed once every 2 years. The testing frequency can be increased to one year for patients who have rapidly progressing disease, those who are receiving or discontinuing medical therapy to restore bone mass, or have additional risk factors.
== END 2023-07-15 13:47 | disposition home or self-care (01) ==
LOC: HO.MAMMO 13:46
PROVIDERS: PCP Physician Assistant Medical; Visit Provider Nurse Practitioner Family
DX: Z13.820 Encounter for screening for osteoporosis (principal); M34.1 CR(E)ST syndrome; Z78.0 Asymptomatic menopausal state
CPT/HCPCS: 77080

== ENCOUNTER 2023-10-14 14:30 | Outpatient (AMB) | payer OTHER, MEDICAID, SELFPAY ==
--- NOTE | 2023-10-14 14:40 | A.OFFVIS_ITS ---
Intake Vital Signs 3 10/14/23 14:52 Height 5 ft Weight 128 lb 11.999 oz BMI 25.1 BP 104/72 Blood Pressure Location Rt brachial Position Sitting Pulse 96 Pulse Source Palpation Temp 97.5 F Temp Source Skin Intake Visit Reasons: Crest Syndrome Intake Note: Patient last seen 06/22/23 by Vidhi, presents today for CREST follow up and test results. 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 She continues with the complaints of the effects of Raynaud's to her fingers. The ulcers are largely healed but the sensitivity to the fingertips has increased such that even the wind exposure is very painful. She is now complaining of jaw pain and clicking bilaterally. Her dentures are ill fitted now and she says her mouth feels like it is getting smaller so or dentures are not fitting properly. Due to the dry mouth associated with Sjogren's, she has had increased number of carries and so many of her teeth have been extracted over the years, requiring partial dentures. Prior Visit:06/22/2023. 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 She is mostly symptomatic at this point from her Raynaud's disease. She has noticed improvement to her fingers since she started Nefidipine 10 mg QD since last visit. She has had less activity of ischemia and its associated symptoms in the right 3rd finger. She is optimistic that this will slow progression and prevents further amputation as did the distal phalanx of the 2nd finger in that hand. She remains on amlodipine 5 mg b.i.d., and Cialis 40 mg daily. She knows the Cialis is helpful because when she misses it for a few days she gets more ischemic symptoms. She also he uses the hydrocodone at night mostly for pain but sometimes during the day as well. She has a topical lidocaine ointment she puts on at night at times. She remains on gabapentin 300 t.i.d. and ibuprofen 600 b.i.d. both p.r.n. as well. She is on Nexium for heartburn and that seems to be controlling things. The cevimeline has helped with her dry mouth but she does still get intermittent oral ulcers which do respond to courses of prednisone even at a relatively low dose of 5-10 mg daily for a few days. She denies oral ulcers since last visit but reports that the toothpaste is very harsh and coates her mouth. She sometimes misses her dose of cevimeline and finds that her mouth coates more at these times and her oral tissue often sticks to her teeth and lips are dry. Gisela has not yet seen the eye MD and questions if she has to start HCQ given that Nifidipine has improved her fingers She is akso concerned about the out of pocket cost to her for her Health care bills. [facility] Medical History (Updated 10/19/23 @ 13:40 by LIDIA Garcia) Age-related osteoporosis without current pathological fracture Osteoporosis screening GERD (gastroesophageal reflux disease) Anxiety and depression Hypothyroidism Scleroderma Rheumatoid arthritis Surgical History History of esophagogastroduodenoscopy (EGD) History of amputation of finger of right hand H/O colonoscopy H/O neck surgery Family History Other Scleroderma Social History Household Members: Family Housing: House Are you a primary career coach to a significant other at home: No Do you presently have visiting nurse or other home services: No 75 years or older and lives alone: No Alcohol intake: current Alcohol intake frequency: a few times a month Alcohol type: beer Patient Tobacco Use Status: Current someday Tobacco user e-Cigarette/Vaping Use: Never Used service: No Current occupational status: employed 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 Oral mucosa dry, dry lips.? No ulcerations seen. small oral cavity and HEART:? Regular rhythm, S1-S2 heard, no murmurs, rubs or gallops. LUNG:? Clear to auscultation, respiratory rate regular and nonlabored. EXTREMITIES:? No edema, no calf tenderness, normal peripheral pulses. SKIN: ? Telangiectasias noted scattered on index fingers. Dimpling and thickened skin at chin, furrowing upper lip Photo of the fingers: The tip of the right 3rd and left 3rd finger or mild to moderately tender. There is minimal tenderness at the left 2nd and right 4th fingertips. There is no obvious signs of infection or drainage. JOINT EXAM:?? Cervical Spine:? Full range of motion without pain; no tenderness. Thoracic Spine:? No scoliosis.? No tenderness on palpation. Lumbar Spine: Alignment normal.? Full range of motion without pain, no tenderness. Hands: LEFT:? 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 Tight skin noted extending from the nail up to the MCP on all digits.? DIP of 2nd digit with healed deformities. Tenderness to palpation of 3rd DIP near the nail with flat white shallow erosion medially, skin from the DIP to the tip of the finger is no longer dusky, no erythema, swelling, warmth or drainage noted. ? RIGHT:? 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 Tight skin noted extending from the nail up to the MCP and all digits.? DIP of the 2nd digit absent , surgical site is healed.? Tenderness to palpation of the 3rd DIP near the nail, skin from the DIP to the tip of the finger is no longer dusky, ulcer is resolved and continues to heal - tip very tender touch,? no erythema swelling, warmth or drainage noted. 4th DIP tender. Though the digits continue with tenderness, the perfusion has improved and so improved color. Wrists:? Normal pain-free range of motion without tenderness, swelling, increased warmth or erythema. Elbows: LEFT:? Normal pain free range of motion without, swelling, increased warmth or erythema.? No tenderness to palpation over the olecranon, no swelling, there is an area of dry skin with a shallow opening in the center, no drainage, erythema or increased warmth noted.? No signs symptoms of infection noted. ? RIGHT: Normal pain-free range of motion without tenderness, swelling, increased warmth or erythema. Shoulders:?? Full range of motion without pain. No tenderness, weakness, swelling, increased warmth or erythema. Hips: Full range of motion without pain. Hip bursa:? No tenderness. Knees:? Normal pain-free range of motion without tenderness, swelling, increased warmth or erythema.? There is no effusion or crepitation Ankles:? Normal pain-free range of motion without tenderness, swelling, increased warmth or erythema.? There is no effusion or crepitation. Feet:? Normal pain-free range of motion without tenderness, swelling, increased warmth or erythema.? There is no effusion or crepitation. Results Reviewed Results Reviewed: Laboratory Tests 06/27/22 06/27/22 06/22/23 15:18 15:18 15:41 RBC 3.74 L 3.62 L Hgb 10.9 L 11.4 L Hct 33.9 L 34.6 L Neut % (Auto) 37.5 L Lymph % (Auto) 46.2 H [place] % (Auto) 12.5 H 11.9 H ESR 28 H 25 H C-Reactive Protein 0.53 H 0.35 Assessment & Plan Assessment & Plan (1) CREST syndrome: Code(s): M34.1 - CR(E)ST syndrome (2) Raynauds disease: Code(s): I73.00 - Raynaud's syndrome without gangrene Qualifiers: Raynaud?s-associated gangrene presence: without gangrene Qualified Code(s): I73.00 - Raynaud's syndrome without gangrene (3) Osteoporosis screening: Code(s): Z13.820 - Encounter for screening for osteoporosis Plan #LUISA - Gisela has Crest syndrome with continued symptomatic Raynaud's disease. The Raynauds with ulceration is active irrespective of the weather so she continues with ulceration to her fingers during the summer months. The switch from Amlodopine 5mg to nifedipine, 10 mg b.i.d. for a week and then t.i.d. has been effective. There is better improvement in her Raynaud's control with that calcium channel ralph rather than the amlodipine. We will continue to monitor to ensure that her blood pressure tolerates it. The patient has shared that her fingertips remains very sensitive even to the wind. I discussed with her that the nerve endings are more exposed and so the sensitivity has increased. She wears Band-Aids over some of her fingertips to cope with the sensitivity. She is already on gabapentin and Percocet helps with her pain. We will obtain labs 1 week before next visit I continue to believe that there is more disease activity beyond the Raynaud's: --She also has recurrent oral ulcers and dry mouth which are some of the oral manifestation of CREST. -- At last visit 06/12/2023, I suspected that her mouth has gotten smaller (Microstomia). Today she reported some additional things that she has become more mindful of since our last visit - includes ill-fitting dentures, difficulty swallowing, TMJ symptoms of clicking and Jaw pain. Patient has not yet had the eye exam done as agreed. She thought since the Nifidipine improved her fingers then it would not be necessary to start Hydroxychloroquine. However, I recommend that HCQ be started. On PE, there is evidence of orafacial fibrosis - circumoral furrows/perioral wistle lines, skin thickening and dimpling on her chin. The teeth are also shifting and patient also states that she cannot open her mouth as wide as before. She may benefit from a periodontal examination. At this time there is no indication of ILD or PHTN that can accompany lSSc but we will continue to monitor. Follow-up in 4 months but hopefully patient will have the eye exam and we can start the HCQ before next visit. HCQ can help with slowing down the fibrosis - sclerodactyly - fingers skin thickening given its mechanism of action (MOA). _ CREST symptoms Evidenced in Literature The literature shows that, The oral manifestations of CREST include?microstomia, xerostomia, telangietasia, increased decayed, missing and filled teeth. [3,5?7] The tongue can also become rigid, making speech and swallowing difficult. The soft tissues around the temperomandibular joint were also affected, which results in pseudoankylosis. Rayshawn Bustamante, Anthony DS, Rayshawn Canas. Oral and periodontal manifestations associated with systemic sclerosis: A case series and review. J [place] Soc Periodontol. 2012 Nov;16(2):271-4. doi: 10.4103/[id number]. PMID: 03303842; PMCID: [id number]. The most-commonly postulated model of disease progression in Systemic sclerosis (SSc) is based on the interplay between endothelial damage and tissue repair. Hydroxychloroquine (HCQ) is commonly used in systemic sclerosis (SSc) for the management of joint involvement [1]. In addition, HCQ showed to exert a protective role on endothelial dysfunction in several pathologic conditions [2] but no data exist in SSc. Stuart?F,?Irace?R,?Borgia?A, et al [id number]?HYDROXYCHLOROQUINE SIGNIFICANTLY REDUCES SERUM MARKERS OF ENDOTHELIAL INJURY AND MODESOT VIDEOCAPILLAROSCOPY SCORE IN SYSTEMIC SCLEROSIS: A 3-MONTHS PROSPECTIVE OBSERVATIONAL STUDY Annals of the Rheumatic Diseases?2019;78:837-838. Note Nifedipine relaxes coronary smooth muscle and produces coronary vasodilation, which, in turn, improves myocardial oxygen delivery; adverse reactions occur predominantly with short-acting formulations and include peripheral edema, headache, dizziness, and tachycardia; calcium channel blockers may worsen gastroesophageal reflux; SR formulations are associated with fewer adverse effects. Orders: Orders 2 Erythrocyte Sedimentation Rate 10/14/23 I73.00 - Raynaud's syndrome without gangrene, M34.1 - CR(E)ST syndrome Complete Blood Count Auto Diff 10/14/23 I73.00 - Raynaud's syndrome without gangrene, M34.1 - CR(E)ST syndrome, Z79.899 - Other rotor winder (current) drug therapy XR DEXA axial skeleton Today M34.1 - CR(E)ST syndrome, M81.0 - Age-related osteoporosis without current pathological fracture C Reactive Protein 10/14/23 I73.00 - Raynaud's syndrome without gangrene, M34.1 - CR(E)ST syndrome Alanine Aminotransferase 10/14/23 I73.00 - Raynaud's syndrome without gangrene, M34.1 - CR(E)ST syndrome, Z79.899 - Other rotor winder (current) drug therapy Aspartate Amino Transferase 10/14/23 I73.00 - Raynaud's syndrome without gangrene, M34.1 - CR(E)ST syndrome, Z79.899 - Other senior living (current) drug therapy Creatinine 10/14/23 I73.00 - Raynaud's syndrome without gangrene, M34.1 - CR(E)ST syndrome, Z79.899 - Other rotor winder (current) drug therapy Coding Level of Care Code Est Pt Level 3 (71819) Diagnoses CREST syndrome M34.1 Raynaud's disease without gangrene I73.00 Raynaud?s-associated gangrene presence: without gangrene Osteoporosis screening Z13.820
[2023-10-14 14:52] VITALS: BP 104/72; PULSE 96; TEMP 36.4; BMI 25.1
== END 2023-10-14 15:44 | disposition home or self-care (01) ==
PROVIDERS: PCP Physician Assistant Medical; Visit Provider Nurse Practitioner Family
DX: M34.1 CR(E)ST syndrome (principal); I73.00 Raynaud's syndrome without gangrene; Z13.820 Encounter for screening for osteoporosis
CPT/HCPCS: 99213

== ENCOUNTER → 2023-10-14 14:30 | Outpatient (BNVA) | payer OTHER, MEDICAID, SELFPAY | PROVIDERS: PCP Physician Assistant Medical; Visit Provider Nurse Practitioner Family ==

== ENCOUNTER 2023-11-02 12:15 | Outpatient (AMB) | payer OTHER, MEDICAID, SELFPAY ==
--- NOTE | 2023-11-02 13:03 | A.OFFVIS_ITS ---
Intake Vital Signs 3 11/02/23 13:08 Height 5 ft Weight 124 lb 12.506 oz BMI 24.4 BP 92/62 Blood Pressure Location Rt brachial Position Sitting Pulse 80 Pulse Source Palpation Temp 98.1 F Temp Source Skin Intake Visit Reasons: Finger swelling Intake Note: Patient reports [facility] ED visit yesterday due to palpitations and left index fingertip pain and redness that began , worsened Thursday. Tried Tylenol with no relief. Patient states 12/10 pain scale, I wanna cut it off! . Reports swelling and difficulty bending it. Patient wrapped her finger with ointment overnight but had trouble sleeping due to pain. Fingertip is now turning black and redness is spreading to the rest of the finger. Morphine given at the ED with no relief. Hydrocodone was algo given which minimally relieved pain Director Of Services Required: No Accompanied by: Self / Same As Patient Allergies No Known Allergies Allergy (Verified 11/02/23 13:09) Medication List - Last Reconciled 11/02/23 by Ghassan Yang MD acetaminophen ER (Tylenol Arthritis Pain) 650 mg PO Q8H PRN alprazolam (Xanax) 0.5 mg PO DAILY PRN amitriptyline 25 mg PO BEDTIME aspirin 81 mg PO DAILY cevimeline 1 cap PO TID cyclobenzaprine 5 mg PO TID PRN escitalopram oxalate 20 mg PO DAILY esomeprazole magnesium (Nexium) 40 mg PO DAILY 30 days ferrous sulfate 325 mg PO DAILY gabapentin 600 mg PO TID hydrocodone-acetaminophen 5-325 mg 1 tab PO BID PRN ibuprofen 600 mg PO BID PRN levothyroxine 88 mcg PO DAILY lidocaine 5% 1 appl topical BID-QID PRN naloxone 4 mg/actuation (Narcan) 4 mg intranasal Q2M PRN nifedipine ER 30 mg PO DAILY nitroglycerin 2% 1 inch transdermal Q6H PRN silver sulfadiazine 1% (Silvadene) 1 appl topical BID tadalafil 40 mg (2 x 20 mg) PO DAILY HPI HPI Comments 2 History of Present Illness0 Details 63-year-old female with crest syndrome r eturns for urgent visit. She states that since yesterday her left index finger has been very painful and is changing color, is changing to black. She went to the emergency room yesterday for palpitations as well as her her finger. She mentions that she was told her heart was fine she was given morphine for her finger pain, was not helpful, she stated that she was given a tablet that was helpful. Topical nitroglycerin was also applied to the wound and it was painful. She was discharged home. She states that she takes the nifedipine 10 mg t.i.d.. She stopped using the tadalafil 2 months ago as it was expensive. She worries about her finger getting amputated. She denies any fevers or chills. [facility] Medical History Age-related osteoporosis without current pathological fracture Osteoporosis screening GERD (gastroesophageal reflux disease) Anxiety and depression Hypothyroidism Scleroderma Rheumatoid arthritis Surgical History History of esophagogastroduodenoscopy (EGD) History of amputation of finger of right hand H/O colonoscopy H/O neck surgery Family History Other Scleroderma Social History Household Members: Family Housing: House Are you a primary home care companion to a significant other at home: No Do you presently have visiting nurse or other home services: No 75 years or older and lives alone: No Alcohol intake: current Alcohol intake frequency: a few times a month Alcohol type: beer Patient Tobacco Use Status: Current someday Tobacco user e-Cigarette/Vaping Use: Never Used service: No Current occupational status: employed 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 There is no drainage. There is no open wound, there is mild dark discoloration of the palmar aspect of the finger. Neuro General: patient oriented x3 Results Reviewed Results Reviewed: Laboratory Tests Assessment & Plan Assessment & Plan (1) Raynauds disease: Code(s): I73.00 - Raynaud's syndrome without gangrene Qualifiers: Raynaud?s-associated gangrene presence: without gangrene Qualified Code(s): I73.00 - Raynaud's syndrome without gangrene Plan: Patient returns with Raynaud's episode affecting her left index finger. Of note patient had discontinued her tadalafil 2 months ago. Restart tadalafil Continue with nifedipine but will change it to 30 mg extended release once daily Start aspirin 81 mg daily Continue with PPI Apply Silvadene to any open wounds Apply topical nitroglycerin paste to the base of the finger proximal to the fingertip Hydrocodone refilled Follow-up in 2 weeks Plan I spent 23 minutes reviewing patient's chart, evaluating patient, placing orders, counseling patient and documenting in the chart Medications: New 2 silver sulfadiazine 1% (Silvadene) apply a 1.5 mm thickness 1 appl topical BID 20 grams 2RF aspirin 81 mg PO DAILY 30 tabs 1RF nifedipine ER 30 mg PO DAILY 30 tabs 2RF Refilled 2 nitroglycerin 2% allow nitrate-free interval of approx. 10-12 hrs per 24-hour period 1 inch transdermal Q6H PRN 60 grams 0RF severe pain (scale score 7-10), Severe Raynaud's I73.00 - Raynaud's syndrome without gangrene, M34.1 - CR(E)ST syndrome tadalafil 40 mg (2 x 20 mg) PO DAILY 60 tabs 5RF I73.00 - Raynaud's syndrome without gangrene hydrocodone-acetaminophen 5-325 mg Partial Fill upon patient request. 1 tab PO BID PRN 60 tabs 0RF pain I73.00 - Raynaud's syndrome without gangrene Discontinued 2 nifedipine Discontinued Reason: Doctor's Order 10 mg PO TID 90 caps 3RF I73.00 - Raynaud's syndrome without gangrene Coding Level of Care Code Est Pt Level 4 (03911) Diagnoses Raynaud's disease without gangrene I73.00 Raynaud?s-associated gangrene presence: without gangrene
[2023-11-02 13:08] VITALS: BP 92/62; PULSE 80; TEMP 36.7; BMI 24.4
== END 2023-11-02 13:56 | disposition home or self-care (01) ==
PROVIDERS: PCP Physician Assistant Medical; Visit Provider Student in an Organized Health Care Education/Training Program
DX: I73.00 Raynaud's syndrome without gangrene (principal)
CPT/HCPCS: 99214

== ENCOUNTER → 2023-11-02 12:15 | Outpatient (BNVA) | payer OTHER, MEDICAID, SELFPAY | PROVIDERS: PCP Physician Assistant Medical; Visit Provider Student in an Organized Health Care Education/Training Program ==

== ENCOUNTER 2023-12-09 15:35 | Outpatient (AMB) | payer OTHER, MEDICAID, SELFPAY ==
--- NOTE | 2023-12-09 15:39 | A.OFFVIS_ITS ---
Vital Signs 3 12/09/23 15:53 Height 5 ft Weight 213 lb 2.992 oz BMI 41.6 BP 100/64 Blood Pressure Location Rt brachial Position Sitting Pulse 68 Pulse Source Palpation Intake Visit Reasons: Crest Intake Note: Patient here for Crest syndrome. Client Customer Manager Required: No Accompanied by: Daughter Allergies No Known Allergies Allergy (Verified 12/09/23 15:52) HPI Comments Details: Jackie Higgins presents today for follow-up of CREST syndrome. She continues with the complaints of the effects of Raynaud's to her fingers. The ulcers are largely healed but the sensitivity to the fingertips has increased such that even the wind exposure is very painful. She was in the office for an urgent visit in october as outlined below. She shares that she has been smoking on the weekend despite our prior discussions against smoking. She had also self-stopped her tadalafil. She has not yet seen the eye MD. 11/02/2023 Dr. 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 She states that since yesterday her left index finger has been very painful and is changing color, is changing to black. She went to the emergency room yesterday for palpitations as well as her finger. She mentions that she was told her heart was fine she was given morphine for her finger pain, was not helpful, she stated that she was given a tablet that was helpful. Topical nitroglycerin was also applied to the wound and it was painful. She was discharged home. She states that she takes the nifedipine 10 mg t.i.d.. She stopped using the tadalafil 2 months ago as it was expensive. She worries about her finger getting amputated. She denies any fevers or chills. 10/14/2023: Jackie Higgins presents today for follow-up of CREST syndrome. She continues with the complaints of the effects of Raynaud's to her fingers. The ulcers are largely healed but the sensitivity to the fingertips has increased such that even the wind exposure is very painful. She is now complaining of jaw pain and clicking bilaterally. Her dentures are ill fitted now and she says her mouth feels like it is getting smaller so or dentures are not fitting properly. Due to the dry mouth associated with Sjogren's, she has had increased number of carries and so many of her teeth have been extracted over the years, requiring partial dentures. Prior Visit:06/22/2023. Gisela, 63yoF presents today for follow-up of CREST syndrome. She is mostly symptomatic at this point from her Raynaud's disease. She has noticed improvement to her fingers since she started Nefidipine 10 mg QD since last visit. She has had less activity of ischemia and its associated symptoms in the right 3rd finger. She is optimistic that this will slow progression and prevents further amputation as did the distal phalanx of the 2nd finger in that hand. She remains on amlodipine 5 mg b.i.d., and Cialis 40 mg daily. She knows the Cialis is helpful because when she misses it for a few days she gets more ischemic symptoms. She also he uses the hydrocodone at night mostly for pain but sometimes during the day as well. She has a topical lidocaine ointment she puts on at night at times. She remains on gabapentin 300 t.i.d. and ibuprofen 600 b.i.d. both p.r.n. as well. She is on Nexium for heartburn and that seems to be controlling things. The cevimeline has helped with her dry mouth but she does still get intermittent oral ulcers which do respond to courses of prednisone even at a relatively low dose of 5-10 mg daily for a few days. She denies oral ulcers since last visit but reports that the toothpaste is very harsh and coates her mouth. She sometimes misses her dose of cevimeline and finds that her mouth coates more at these times and her oral tissue often sticks to her teeth and lips are dry. Gisela has not yet seen the eye MD and questions if she has to start HCQ given that Nifidipine has improved her fingers She is akso concerned about the out of pocket cost to her for her Health care bills. [facility] Medical History (Updated 12/09/23 @ 16:10 by MARGRET Garcia) Raynaud's disease with gangrene Age-related osteoporosis without current pathological fracture Osteoporosis screening GERD (gastroesophageal reflux disease) Anxiety and depression Hypothyroidism Scleroderma Rheumatoid arthritis Surgical History History of esophagogastroduodenoscopy (EGD) History of amputation of finger of right hand H/O colonoscopy H/O neck surgery Family History Other Scleroderma Social History Household Members: Family Housing: House Are you a primary personal care service provider to a significant other at home: No Do you presently have visiting nurse or other home services: No 75 years or older and lives alone: No Alcohol intake: current Alcohol intake frequency: a few times a month Alcohol type: beer Patient Tobacco Use Status: Current someday Tobacco user e-Cigarette/Vaping Use: Never Used service: No Current occupational status: employed 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 Oral mucosa dry, dry lips.? No ulcerations seen. small oral cavity and HEART:? Regular rhythm, S1-S2 heard, no murmurs, rubs or gallops. LUNG:? Clear to auscultation, respiratory rate regular and nonlabored. EXTREMITIES:? No edema, no calf tenderness, normal peripheral pulses. SKIN: ? Telangiectasias noted scattered on index fingers. Dimpling and thickened skin at chin, furrowing upper lip Photo of the fingers: The tip of the right 3rd and left 3rd finger or mild to moderately tender. There is minimal tenderness at the left 2nd and right 4th fingertips. There is no obvious signs of infection or drainage. JOINT EXAM:?? Cervical Spine:? Full range of motion without pain; no tenderness. Thoracic Spine:? No scoliosis.? No tenderness on palpation. Lumbar Spine: Alignment normal.? Full range of motion without pain, no tenderness. Hands: LEFT:? 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 Tight skin noted extending from the nail up to the MCP on all digits.? DIP of 2nd digit with healed deformities. Tenderness to palpation of 3rd DIP near the nail with flat white shallow erosion medially, skin from the DIP to the tip of the finger is no longer dusky, no erythema, swelling, warmth or drainage noted. ? RIGHT:? 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 Tight skin noted extending from the nail up to the MCP and all digits.? DIP of the 2nd digit absent , surgical site is healed.? Tenderness to palpation of the 3rd DIP near the nail, skin from the DIP to the tip of the finger is no longer dusky, ulcer is resolved and continues to heal - tip very tender touch,? no erythema swelling, warmth or drainage noted. 4th DIP tender. Though the digits continue with tenderness, the perfusion has improved and so improved color. Wrists:? Normal pain-free range of motion without tenderness, swelling, increased warmth or erythema. Elbows: LEFT:? Normal pain free range of motion without, swelling, increased warmth or erythema.? No tenderness to palpation over the olecranon, no swelling, there is an area of dry skin with a shallow opening in the center, no drainage, erythema or increased warmth noted.? No signs symptoms of infection noted. ? RIGHT: Normal pain-free range of motion without tenderness, swelling, increased warmth or erythema. Shoulders:?? Full range of motion without pain. No tenderness, weakness, swelling, increased warmth or erythema. Hips: Full range of motion without pain. Hip bursa:? No tenderness. Knees:? Normal pain-free range of motion without tenderness, swelling, increased warmth or erythema.? There is no effusion or crepitation Ankles:? Normal pain-free range of motion without tenderness, swelling, increased warmth or erythema.? There is no effusion or crepitation. Feet:? Normal pain-free range of motion without tenderness, swelling, increased warmth or erythema.? There is no effusion or crepitation. Assessment & Plan Assessment & Plan (1) CREST syndrome: Code(s): M34.1 - CR(E)ST syndrome Category: Medical (2) Raynauds disease: Code(s): I73.00 - Raynaud's syndrome without gangrene Category: Medical Qualifiers: Raynaud?s-associated gangrene presence: without gangrene Qualified Code(s): I73.00 - Raynaud's syndrome without gangrene Plan: Patient returns with Raynaud's episode affecting her left index finger. Of note patient had discontinued her tadalafil 2 months ago. Restart tadalafil Continue with nifedipine but will change it to 30 mg extended release once daily Start aspirin 81 mg daily Continue with PPI Apply Silvadene to any open wounds Apply topical nitroglycerin paste to the base of the finger proximal to the fingertip Hydrocodone refilled Follow-up in 2 weeks (3) Osteoporosis screening: Code(s): Z13.820 - Encounter for screening for osteoporosis Category: Medical Plan CREST/Raynauds: Patient will continue with the medications as prescribed - Continue tadalafil and Hydrocodone Continue with nifedipine 30 mg extended release once daily Contiue aspirin 81 mg daily Continue with PPI Apply Silvadene to any open wounds Apply topical nitroglycerin paste to the base of the finger proximal to the fingertip She will obtain Eye evaluation to start HCQ. Use Clotrimazole to finger tips F/U 4 months 35 minutes reviewing chart, evaluating and educating patient and documenting 10/14/2023: #LUISA - Gisela has Crest syndrome with continued symptomatic Raynaud's disease. The Raynauds with ulceration is active irrespective of the weather so she continues with ulceration to her fingers during the summer months. The switch from Amlodopine 5mg to nifedipine, 10 mg b.i.d. for a week and then t.i.d. has been effective. There is better improvement in her Raynaud's control with that calcium channel ralph rather than the amlodipine. We will continue to monitor to ensure that her blood pressure tolerates it. The patient has shared that her fingertips remains very sensitive even to the wind. I discussed with her that the nerve endings are more exposed and so the sensitivity has increased. She wears Band-Aids over some of her fingertips to cope with the sensitivity. She is already on gabapentin and Percocet helps with her pain. We will obtain labs 1 week before next visit I continue to believe that there is more disease activity beyond the Raynaud's: --She also has recurrent oral ulcers and dry mouth which are some of the oral manifestation of CREST. -- At last visit 06/12/2023, I suspected that her mouth has gotten smaller (Microstomia). Today she reported some additional things that she has become more mindful of since our last visit - includes ill-fitting dentures, difficulty swallowing, TMJ symptoms of clicking and Jaw pain. Patient has not yet had the eye exam done as agreed. She thought since the Nifidipine improved her fingers then it would not be necessary to start Hydroxychloroquine. However, I recommend that HCQ be started. On PE, there is evidence of orafacial fibrosis - circumoral furrows/perioral wistle lines, skin thickening and dimpling on her chin. The teeth are also shifting and patient also states that she cannot open her mouth as wide as before. She may benefit from a periodontal examination. At this time there is no indication of ILD or PHTN that can accompany lSSc but we will continue to monitor. Follow-up in 4 months but hopefully patient will have the eye exam and we can start the HCQ before next visit. HCQ can help with slowing down the fibrosis - sclerodactyly - fingers skin thickening given its mechanism of action (MOA). Patient returns with Raynaud's episode affecting her left index finger. Of note patient had discontinued her tadalafil 2 months ago. Restart tadalafil Continue with nifedipine but will change it to 30 mg extended release once daily Start aspirin 81 mg daily Continue with PPI Apply Silvadene to any open wounds Apply topical nitroglycerin paste to the base of the finger proximal to the fingertip Hydrocodone refilled Follow-up in 2 weeks _ CREST symptoms Evidenced in Literature The literature shows that, The oral manifestations of CREST include?microstomia, xerostomia, telangietasia, increased decayed, missing and filled teeth. [3,5?7] The tongue can also become rigid, making speech and swallowing difficult. The soft tissues around the temperomandibular joint were also affected, which results in pseudoankylosis. Rayshawn R, Anthony SHOEMAKER, Rayshawn Canas. Oral and periodontal manifestations associated with systemic sclerosis: A case series and review. J [employer] Soc Periodontol. 2012 Nov;16(2):271-4. doi: 10.4103/0972-124X.46424. PMID: [id number]; PMCID: [id number]. The most-commonly postulated model of disease progression in Systemic sclerosis (SSc) is based on the interplay between endothelial damage and tissue repair. Hydroxychloroquine (HCQ) is commonly used in systemic sclerosis (SSc) for the management of joint involvement [1]. In addition, HCQ showed to exert a protective role on endothelial dysfunction in several pathologic conditions [2] but no data exist in SSc. Stuart?F,?Irace?R,?Borgia?A, et al [id number]?HYDROXYCHLOROQUINE SIGNIFICANTLY REDUCES SERUM MARKERS OF ENDOTHELIAL INJURY AND MODESTO VIDEOCAPILLAROSCOPY SCORE IN SYSTEMIC SCLEROSIS: A 3-MONTHS PROSPECTIVE OBSERVATIONAL STUDY Annals of the Rheumatic Diseases?2019;78:837-838. Note Nifedipine relaxes coronary smooth muscle and produces coronary vasodilation, which, in turn, improves myocardial oxygen delivery; adverse reactions occur predominantly with short-acting formulations and include peripheral edema, headache, dizziness, and tachycardia; calcium channel blockers may worsen gastroesophageal reflux; SR formulations are associated with fewer adverse effects. Orders: Referrals 2 Optometry Referral M34.1 - CR(E)ST syndrome Medications: New 2 clotrimazole 1% 1 appl topical BID 45 grams 0RF I73.01 - Raynaud's syndrome with gangrene, S61.200A - Unspecified open wound of right index finger without damage to nail, initial encounter Coding Level of Care Code Est Pt Level 4 (33022) Diagnoses CREST syndrome M34.1 Raynaud's disease without gangrene I73.00 Raynaud?s-associated gangrene presence: without gangrene Osteoporosis screening Z13.820
[2023-12-09 15:53] VITALS: BP 100/64; PULSE 68; BMI 41.6
== END 2023-12-09 16:26 | disposition home or self-care (01) ==
PROVIDERS: PCP Physician Assistant Medical; Visit Provider Nurse Practitioner Family
DX: M34.1 CR(E)ST syndrome (principal); I73.00 Raynaud's syndrome without gangrene; Z13.820 Encounter for screening for osteoporosis
CPT/HCPCS: 99214

== ENCOUNTER → 2023-12-09 15:35 | Outpatient (BNVA) | payer OTHER, MEDICAID, SELFPAY | PROVIDERS: PCP Physician Assistant Medical; Visit Provider Nurse Practitioner Family ==

== ENCOUNTER 2024-01-15 13:05 | Outpatient (REF) | payer OTHER, MEDICAID, SELFPAY ==
[2024-01-15 13:16] LABS: MANUAL DIFF FLAG NO
[2024-01-15 14:28] LABS: Basophils Percent Auto 0.5 % (0-2); Eosinophils Absolute Auto 0.2 X10*3/uL (0.0-0.4); Eosinophils Percent Auto 2.9 % (0-4); Hematocrit 30.5 % (37.0-47.0); Imm Gran Abs Auto 0.02 X10*3/uL (0.00-0.03); Imm Gran Pct Auto 0.3 % (0.0-0.4); Lymphocytes Absolute Auto 2.7 X10*3/uL (1.2-4.9); Lymphocytes Percent Auto 36.4 % (20-40); Mean Corpuscular HGB Conc 32.8 g/dl (31.0-35.0); Mean Corpuscular Hemoglobin 28.9 pg (27.0-33.0); Mean Corpuscular Volume 88.2 fL (80.0-98.0); Mean Platelet Volume 10.6 fL (9.4-12.3); Monocytes Absolute Auto 0.8 X10*3/uL (0.1-1.2); Monocytes Percent Auto 11.2 % (2-11); Neutrophils Absolute Auto 3.6 x10*3/uL (2.0-8.3); Neutrophils Percent Auto 48.7 % (45-73); Platelet Count 302 X10*3/uL (160-400); Red Blood Count 3.46 X10*6/uL (4.20-5.50); Red Cell Distribution Width 14.6 % (11.0-16.0); White Blood Count 7.3 X10*3/uL (4.8-10.8)
[2024-01-15 15:03] LABS: Alanine Aminotransferase 17 U/L (0-31); Aspartate Amino Transferase 32 U/L (5-31); C Reactive Protein 0.76 mg/dL (< or = 0.50); Estimated Glomerular Filt Rate > 60
[2024-01-15 15:08] LABS: Erythrocyte Sedimentation Rate 30 MM/HR (0-20)
== END 2024-01-15 13:06 | disposition home or self-care (01) ==
LOC: HO.LAB 13:05
PROVIDERS: Visit Provider Nurse Practitioner Family
DX: I73.00 Raynaud's syndrome without gangrene (principal); M34.1 CR(E)ST syndrome; Z79.899 Other long term (current) drug therapy
CPT/HCPCS: 36415; 82565; 84450; 84460; 85025; 85652; 86140

== ENCOUNTER 2024-05-10 15:51 | Outpatient (AMB) | payer OTHER, MEDICAID, SELFPAY ==
[2024-05-10 16:05] VITALS: BP 108/64; PULSE 64; O2SAT 95; BMI 24.6
--- NOTE | 2024-05-10 16:05 | A.OFFVIS_ITS ---
Vital Signs 05/10/24 16:05 Height 5 ft Weight 126 lb BMI 24.6 BP 108/64 Blood Pressure Location Lt brachial Position Sitting Pulse 64 Pulse Source Pulse Oximeter Pulse Oximetry (%) 95 Oxygen Delivery Method Room Air Intake Visit Reasons: +LETA Intake Note: Patient last seen by Rina Mosher on 12/09/23. Presents today for +LETA follow up. Patient is requesting nitroglycerin ointment refill. Allergies No Known Allergies Allergy (Verified 05/10/24 16:07) Medication List - Last Reconciled 05/10/24 by Ghassan Yang MD acetaminophen ER (Tylenol Arthritis Pain) 650 mg PO Q8H PRN alprazolam (Xanax) 0.5 mg PO DAILY PRN aspirin 81 mg PO DAILY clotrimazole 1% 1 appl topical BID esomeprazole magnesium (Nexium) 40 mg PO DAILY 30 days ferrous sulfate 325 mg PO DAILY gabapentin 600 mg PO TID hydrocodone-acetaminophen 5-325 mg 1 tab PO BID PRN hydroxychloroquine 200 mg PO DAILY levothyroxine 88 mcg PO DAILY lidocaine 5% 1 appl topical BID-QID PRN naloxone 4 mg/actuation (Narcan) 4 mg intranasal Q2M PRN nifedipine ER 30 mg PO DAILY nitroglycerin 2% 1 inch transdermal Q6H PRN sertraline (Zoloft) 50 mg PO DAILY silver sulfadiazine 1% (Silvadene) 1 appl topical BID tadalafil 40 mg (2 x 20 mg) PO DAILY HPI Comments Details: This is a 64-year-old female with limited scleroderma/crest syndrome who presents for follow-up. She has noted shortening of her left index finger. She wonders whether this will change. She has been taking the hydroxychloroquine. She does not feel that it helped her much. Her Raynaud's is better controlled overall since the weather was warm but it is now starting to cool and symptoms are coming back. Especially the right 3rd finger, she has a healed ulcer on that 3rd digit. She denies any cough or shortness of breath. She feels that recently food has been getting stuck. She takes Nexium once daily 11/02/2023 Dr. 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 She states that since yesterday her left index finger has been very painful and is changing color, is changing to black. She went to the emergency room yesterday for palpitations as well as her finger. She mentions that she was told her heart was fine she was given morphine for her finger pain, was not helpful, she stated that she was given a tablet that was helpful. Topical nitroglycerin was also applied to the wound and it was painful. She was discharged home. She states that she takes the nifedipine 10 mg t.i.d.. She stopped using the tadalafil 2 months ago as it was expensive. She worries about her finger getting amputated. She denies any fevers or chills. 10/14/2023: Jackie Higgins presents today for follow-up of CREST syndrome. She continues with the complaints of the effects of Raynaud's to her fingers. The ulcers are largely healed but the sensitivity to the fingertips has increased such that even the wind exposure is very painful. She is now complaining of jaw pain and clicking bilaterally. Her dentures are ill fitted now and she says her mouth feels like it is getting smaller so or dentures are not fitting properly. Due to the dry mouth associated with Sjogren's, she has had increased number of carries and so many of her teeth have been extracted over the years, requiring partial dentures. Prior Visit:06/22/2023. 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 She is mostly symptomatic at this point from her Raynaud's disease. She has noticed improvement to her fingers since she started Nefidipine 10 mg QD since last visit. She has had less activity of ischemia and its associated symptoms in the right 3rd finger. She is optimistic that this will slow progression and prevents further amputation as did the distal phalanx of the 2nd finger in that hand. She remains on amlodipine 5 mg b.i.d., and Cialis 40 mg daily. She knows the Cialis is helpful because when she misses it for a few days she gets more ischemic symptoms. She also he uses the hydrocodone at night mostly for pain but sometimes during the day as well. She has a topical lidocaine ointment she puts on at night at times. She remains on gabapentin 300 t.i.d. and ibuprofen 600 b.i.d. both p.r.n. as well. She is on Nexium for heartburn and that seems to be controlling things. The cevimeline has helped with her dry mouth but she does still get intermittent oral ulcers which do respond to courses of prednisone even at a relatively low dose of 5-10 mg daily for a few days. She denies oral ulcers since last visit but reports that the toothpaste is very harsh and coates her mouth. She sometimes misses her dose of cevimeline and finds that her mouth coates more at these times and her oral tissue often sticks to her teeth and lips are dry. Gisela has not yet seen the eye MD and questions if she has to start HCQ given that Nifidipine has improved her fingers She is akso concerned about the out of pocket cost to her for her Health care bills. [facility] Medical History (Updated 05/10/24 @ 17:16 by Ghassan Yang MD) Osteopenia Raynaud's disease with gangrene GERD (gastroesophageal reflux disease) Anxiety and depression Hypothyroidism Scleroderma Rheumatoid arthritis Surgical History History of esophagogastroduodenoscopy (EGD) History of amputation of finger of right hand H/O colonoscopy H/O neck surgery Family History Other Scleroderma Social History Household Members: Family Housing: House Are you a primary director of medicare to a significant other at home: No Do you presently have visiting nurse or other home services: No 75 years or older and lives alone: No Alcohol intake: current Alcohol intake frequency: a few times a month Alcohol type: beer Patient Tobacco Use Status: Current someday Tobacco user e-Cigarette/Vaping Use: Never Used service: No Current occupational status: employed 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 Review of Systems ENT Reports dysphagia Resp Reports no additional complaints GI Reports dysphagia and Reports heartburn Skin/Breast Reports non-healing lesions and Reports skin ulcer Physical Exam Vital Signs: Last Vital Signs Pulse 64 05/10/24 16:05 BP 108/64 05/10/24 16:05 Pulse Ox 95 05/10/24 16:05 Oxygen Delivery Method Room Air 05/10/24 16:05 BMI result Body Mass Index 24.6 Const General: cooperative, healthy appearing and comfortable Nutritional Appearance: average body habitus Orientation/consciousness: patient oriented x3 Limitations: no limitations HEENT Head: Yes normocephalic and Yes atraumatic Mouth: moist mucous membranes Resp Effort & Inspection: normal respiratory effort and able to speak in complete sentences Auscultation: clear to auscultation bilaterally Cardio Rate: regular rate Rhythm: regular rhythm Skin Other: Multiple telangiectasias Neuro General: patient oriented x3 Extrem Other: A close dried ulcer on the right 3rd finger Right index DIP amputated Purplish discoloration of right 3rd digital tip, mildly cool to touch Shortening of left index finger.? Possible acro-osteolysis? No active synovitis Assessment & Plan Assessment & Plan (1) CREST syndrome: Comment: dx approx 2016 (Raynaud's with digital tip ulcers, telangiectasias, GERD, +++ centromere, small pericardial effusion) Code(s): M34.1 - CR(E)ST syndrome Category: Medical Plan: This is a 64-year-old female with limited scleroderma who presents for follow- up. Her Raynaud's has been better controlled, she does not have any active digital ulcers. However it will be getting cooler and her Raynaud's may get worse. Advised patient to restart her baby aspirin and stay on it unless there is a contraindication to do so . Refilled Continue with nifedipine 30 mg daily Continue with tadalafil 40 mg daily Use nitroglycerin paste proximal to the digital ulcers Apply Silvadene on any open ulcers Continue sertraline Advised patient to buy electric heated gloves Patient's GERD is worsening and she starting to have food getting stuck. Advised patient to take her Nexium 40 mg twice a day. She buys it OTC. Discussed possible aspiration Advised patient to sleep elevated, use 4 or 5 pillows. If unable, buy a wedge pillow Barium swallow order to evaluate for esophageal stricture. Referred patient to gastroenterology to evaluate for possible esophageal stricture and possible GAVE as patient seems to have chronic anemia Discontinue hydroxychloroquine. There is no compelling indication to stay on it Can continue to take hydrocodone to use as needed for painful digital ulcers There is left index shortening, possible acro-osteolysis, will check bilateral hand and wrist x-rays Labs before next visit in 2 months (2) Raynaud's disease with gangrene: Code(s): I73.01 - Raynaud's syndrome with gangrene Category: Medical Plan: As above (3) Anemia: Code(s): D64.9 - Anemia, unspecified Category: Medical Plan I spent 61 minutes reviewing patient's chart, evaluating patient, ordering d iagnostic workup, counseling patient and documenting in the chart Orders: Orders XR hand wrist LT Today M34.1 - CR(E)ST syndrome Erythrocyte Sedimentation Rate 2 Months M34.1 - CR(E)ST syndrome Hepatitis A,B,C Profile 2 Months Z11.59 - Encounter for screening for other viral diseases T Spot TB 2 Months Z11.7 - Encounter for testing for latent tuberculosis infection Protein Electrophoresis, Serum 2 Months M34.1 - CR(E)ST syndrome XR hand wrist RT Today M34.1 - CR(E)ST syndrome FL barium swallow Today K21.9 - Gastro-esophageal reflux disease without esophagitis, M34.1 - CR(E)ST syndrome Complete Blood Count Auto Diff 2 Months M34.1 - CR(E)ST syndrome Comprehensive Met. Panel 2 Months M34.1 - CR(E)ST syndrome C Reactive Protein 2 Months M34.1 - CR(E)ST syndrome Immunofixation Pnl, Serum 2 Months M34.1 - CR(E)ST syndrome Referrals Gastroenterology Referral R13.10 - Dysphagia, unspecified Medications: New [wedge pillow] use nightly 1 ea 0RF Refilled lidocaine 5% 1 appl topical BID-QID PRN 30 grams 3RF pain nifedipine ER 30 mg PO DAILY 90 tabs 1RF I73.01 - Raynaud's syndrome with gangrene nitroglycerin 2% allow nitrate-free interval of approx. 10-12 hrs per 24-hour period 1 inch transdermal Q6H PRN 60 grams 2RF severe pain (scale score 7-10), Severe Raynaud's I73.00 - Raynaud's syndrome without gangrene, M34.1 - CR(E)ST syndrome tadalafil 40 mg (2 x 20 mg) PO DAILY 180 tabs 1RF I73.00 - Raynaud's syndrome without gangrene aspirin 81 mg PO DAILY 90 tabs 1RF Discontinued hydroxychloroquine Discontinued Reason: Doctor's Order 200 mg PO DAILY 90 tabs 0RF I73.01 - Raynaud's syndrome with gangrene, M34.1 - CR(E)ST syndrome Coding Level of Care Code Est Pt Level 5 (08034) Complex EM visit Add On G2211 Medical Decision Making High Complexity Diagnoses CREST syndrome M34.1 Raynaud's disease with gangrene I73.01 Anemia D64.9
== END 2024-05-10 16:51 | disposition home or self-care (01) ==
PROVIDERS: Visit Provider Student in an Organized Health Care Education/Training Program
DX: M34.1 CR(E)ST syndrome (principal); I73.01 Raynaud's syndrome with gangrene; D64.9 Anemia, unspecified
CPT/HCPCS: 99215; G2211

== ENCOUNTER → 2024-05-10 15:51 | Outpatient (BNVA) | payer OTHER, MEDICAID, SELFPAY | PROVIDERS: Visit Provider Student in an Organized Health Care Education/Training Program ==

== ENCOUNTER 2024-07-18 07:39 | Outpatient (REF) | payer OTHER, MEDICAID, SELFPAY ==
--- NOTE | ~2024-07-18 | FL_ITS ---
EXAMINATION: XR FLUOROSCOPY UPPER GI WITH AIR CLINICAL INFORMATION: Dysphagia. Crest syndrome COMPARISON: None TECHNIQUE: Fluoroscopic air contrast upper GI examination was performed utilizing standard techniques with thin and thick barium and effervescent granules. Numerous spot images were obtained. FINDINGS: Lateral cine images of the oropharynx and hypopharynx demonstrate normal swallow mechanism with normal epiglottic inversion and soft palate elevation. No tracheal penetration, glottic or subglottic aspiration identified. No nasopharyngeal reflux present. Hypopharyngeal structures appear normal without evidence of mass or diverticulum. 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 There was no significant cricopharyngeal achalasia. ACDF is noted at C4-C6. Carotid bulb calcification incidentally noted. Dual and single contrast images of the esophagus demonstrate a mildly patulous esophagus. There is a granular appearance of the esophageal mucosa with multiple areas of contrast pooling that likely represent erosive esophagitis. . In addition there is felinization of the mid esophageal mucosa. No strictures or masses are present. Esophageal peristalsis is moderately disorganized. A small type I hiatal hernia is present. Significant gastroesophageal reflux is seen up to the thoracic inlet. Dual contrast and single contrast images of the stomach demonstrated a normal contour. The gastric rugal folds have a thickened appearance, suggestive of gastritis. No masses or ulcerations are seen. Contrast freely passed into the gastric antrum and duodenal bulb without delay. Single and air-contrast images of the duodenal bulb demonstrate no abnormality. The duodenal sweep has a normal appearance, course, and mucosal fold appearance. The imaged proximal jejunum has a normal fold pattern and caliber. FLUOROSCOPY TIME: 5 minutes 25 seconds Number of Spot Images: 17 Number of Cine: 15 DOSE AREA PRODUCT: 2572 uGy-m2 (microgray-meter squared) FL/FL barium swallow with air IMPRESSION: 1. 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 2. Status post ACDF of C4-C6. 3. Mildly patulous esophagus with moderately disorganized peristalsis consistent with esophageal dysmotility. 4. Granular appearance of the esophageal mucosa. In addition there are multiple focal areas of contrast pooling. These findings are suggestive of erosive esophagitis. Recommend correlation with EGD. 5. Felinization of the mid esophageal mucosa. This is a benign finding that is associated with chronic gastroesophageal reflux. 6. Small type I hiatal hernia with severe gastroesophageal reflux. 7. Thickened appearance of the gastric rugal folds, suggestive of gastritis. This procedure was performed by Isak De Los Santos PA-C, and supervised by Dr. Valdez Electronically signed by: Olegario Valdez MD 07/19/2024 02:11 PM [facility]
== END 2024-07-18 07:40 | disposition home or self-care (01) ==
LOC: HO.XRAY 07:39
PROVIDERS: Visit Provider Student in an Organized Health Care Education/Training Program
DX: M34.1 CR(E)ST syndrome (principal); K21.9 Gastro-esophageal reflux disease without esophagitis
CPT/HCPCS: 73110; 73130; 74221

== ENCOUNTER → 2024-07-18 07:48 | Outpatient (BNV) | payer OTHER, MEDICAID, SELFPAY | PROVIDERS: Visit Provider Physician Assistant Surgical | DX: K21.9 Gastro-esophageal reflux disease without esophagitis (principal) | CPT/HCPCS: 74246 ==

== ENCOUNTER 2024-07-18 08:54 | Outpatient (REF) | payer OTHER, MEDICAID, SELFPAY ==
[2024-07-18 09:16] LABS: MANUAL DIFF FLAG NO
[2024-07-18 09:56] LABS: Basophils Absolute Auto 0.1 X10*3/uL (0.0-0.2); Basophils Percent Auto 0.7 % (0-2); Eosinophils Absolute Auto 0.3 X10*3/uL (0.0-0.4); Eosinophils Percent Auto 3.9 % (0-4); Hematocrit 36.6 % (37.0-47.0); Hemoglobin 11.9 g/dl (12.0-16.0); Imm Gran Abs Auto 0.02 X10*3/uL (0.00-0.03); Imm Gran Pct Auto 0.3 % (0.0-0.4); Lymphocytes Absolute Auto 2.2 X10*3/uL (1.2-4.9); Lymphocytes Percent Auto 32.2 % (20-40); Mean Corpuscular HGB Conc 32.5 g/dl (31.0-35.0); Mean Corpuscular Hemoglobin 31.2 pg (27.0-33.0); Mean Corpuscular Volume 96.1 fL (80.0-98.0); Mean Platelet Volume 10.1 fL (9.4-12.3); Monocytes Absolute Auto 0.7 X10*3/uL (0.1-1.2); Monocytes Percent Auto 10.2 % (2-11); Neutrophils Absolute Auto 3.7 x10*3/uL (2.0-8.3); Neutrophils Percent Auto 52.7 % (45-73); Platelet Count 268 X10*3/uL (160-400); Red Blood Count 3.81 X10*6/uL (4.20-5.50); Red Cell Distribution Width 13.6 % (11.0-16.0); White Blood Count 6.9 X10*3/uL (4.8-10.8)
[2024-07-18 10:45] LABS: Erythrocyte Sedimentation Rate 25 MM/HR (0-20)
[2024-07-18 10:57] LABS: Alanine Aminotransferase 19 U/L (0-31); Albumin Level 4.2 g/dL (3.5-5.0); Alkaline Phosphatase 81 U/L (39-117); Anion Gap 10 (12-20); Aspartate Amino Transferase 24 U/L (5-31); Bilirubin Total 0.3 mg/dL (0.0-1.0); Blood Urea Nitrogen 9 mg/dL (9-16); C Reactive Protein 1.03 mg/dL (< or = 0.50); Calcium 9.4 mg/dL (8.4-10.2); Carbon Dioxide 28 mmol/L (22-29); Chloride 107 mmol/L (96-108); Estimated Glomerular Filt Rate > 60; Glucose Random 93 mg/dL (60-115); Potassium 3.5 mmol/L (3.3-5.1); Sodium 141 mmol/L (135-145); Total Protein 7.4 g/dL (6.5-8.0)
[2024-07-18 12:08] LABS: HBc Num1 0.14 S/CO (0.00-0.79); HBsAGNum1 0.44 S/CO (0.00-0.99); Hepatitis A Antibody IgM 0.39 Index (0-0.79); Hepatitis B Core Antibody Nonreactive (Nonreactive); Hepatitis B Surface Antigen Negative (Negative); ~HepC Num1 0.26 S/CO (0.00-0.79); ~Hepatitis A Antibody IgM Nonreactive (Nonreactive); ~Hepatitis B Surface Antibody NONREACTIVE (Nonreactive); ~Hepatitis C Antibody Nonreactive (Nonreactive)
[2024-07-21 03:23] LABS: TS Negative Control Passed; TS Panel A 0; TS Panel B 0; TS Positive Control Passed; TSpotTB Negative (Negative)
[2024-07-25 10:40] LABS: Prot Elec - Albumin 4.3 g/dL (3.8-4.8); Prot Elec - Alpha1 0.3 g/dL (0.2-0.3); Prot Elec - Alpha2 0.8 g/dL (0.5-0.9); Prot Elec - Beta 1 0.4 g/dL (0.4-0.6); Prot Elec - Beta 2 0.3 g/dL (0.2-0.5); Prot Elec - Gamma 1.3 g/dL (0.8-1.7); Prot Elec - Total Protein 7.4 g/dL (6.1-8.1)
[2024-07-25 22:23] LABS: IgA 149 mg/dL (70-320); IgG 1315 mg/dL (600-1540); IgM 210 mg/dL (50-300)
== END 2024-07-18 08:55 | disposition home or self-care (01) ==
LOC: HO.LAB 08:54
PROVIDERS: Visit Provider Student in an Organized Health Care Education/Training Program
DX: M34.1 CR(E)ST syndrome (principal); Z11.59 Encounter for screening for other viral diseases; Z11.7 Encounter for testing for latent tuberculosis infection
CPT/HCPCS: 36415; 80053; 82784; 84165; 85025; 85652; 86140; 86334; 86481; 86704; 86706; 86709; 86803; 87340

== ENCOUNTER 2024-07-26 15:06 | Outpatient (AMB) | payer OTHER, MEDICAID, SELFPAY ==
[2024-07-26 15:11] VITALS: BP 110/66; PULSE 100; O2SAT 94; BMI 24.9
--- NOTE | 2024-07-26 15:11 | A.OFFVIS_ITS ---
Vital Signs 07/26/24 15:11 Height 5 ft Weight 127 lb 6.835 oz BMI 24.9 BP 110/66 Blood Pressure Location Lt brachial Position Sitting Pulse 100 Pulse Source Pulse Oximeter Pulse Oximetry (%) 94 Oxygen Delivery Method Room Air Intake Visit Reasons: +LETA/CM Intake Note: Patient last seen by doctor Ghassan Yang on 05/10/24. Presents today for +LETA follow up and labs/X-rays test results. Parking Cashier Required: No Accompanied by: Self / Same As Patient Allergies No Known Allergies Allergy (Verified 07/26/24 15:18) Medication List - Last Reconciled 07/26/24 by Ghassan Yang MD acetaminophen ER (Tylenol Arthritis Pain) 650 mg PO Q8H PRN alprazolam (Xanax) 0.5 mg PO DAILY PRN aspirin 81 mg PO DAILY cevimeline 1 cap PO TID clotrimazole 1% 1 appl topical BID dextroamphetamine-amphetamine 5 mg 1 tab PO BID esomeprazole magnesium (Nexium) 40 mg PO BID 30 days gabapentin 600 mg PO TID hydrocodone-acetaminophen 5-325 mg 1 tab PO BID PRN levothyroxine 88 mcg PO DAILY lidocaine 5% 1 appl topical BID-QID PRN naloxone 4 mg/actuation (Narcan) 4 mg intranasal Q2M PRN nifedipine ER 30 mg PO DAILY nitroglycerin 2% 1 inch transdermal Q6H PRN sertraline (Zoloft) 50 mg PO DAILY silver sulfadiazine 1% (Silvadene) 1 appl topical BID tadalafil 40 mg (2 x 20 mg) PO DAILY [wedge pillow use nightly] HPI Comments Details: This is a 64-year-old female with limited scleroderma/crest syndrome who presents for follow-up. She continues to have dysphagia, Reflux, she vomited middle of the night once. She now has an open ulcer on her right middle finger. She states that she picks at the scabs of her fingers and opens up the digital ulcers. She relates this to anxiety. She continues to use the nifedipine, Cialis and nitroglycerin paste regularly. She sleeps using 2 pillows 11/02/2023 Dr. 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 She states that since yesterday her left index finger has been very painful and is changing color, is changing to black. She went to the emergency room yesterday for palpitations as well as her finger. She mentions that she was told her heart was fine she was given morphine for her finger pain, was not helpful, she stated that she was given a tablet that was helpful. Topical nitroglycerin was also applied to the wound and it was painful. She was discharged home. She states that she takes the nifedipine 10 mg t.i.d.. She stopped using the tadalafil 2 months ago as it was expensive. She worries about her finger getting amputated. She denies any fevers or chills. 10/14/2023: Jackie Higgins presents today for follow-up of CREST syndrome. She continues with the complaints of the effects of Raynaud's to her fingers. The ulcers are largely healed but the sensitivity to the fingertips has increased such that even the wind exposure is very painful. She is now complaining of jaw pain and clicking bilaterally. Her dentures are ill fitted now and she says her mouth feels like it is getting smaller so or dentures are not fitting properly. Due to the dry mouth associated with Sjogren's, she has had increased number of carries and so many of her teeth have been extracted over the years, requiring partial dentures. Prior Visit:06/22/2023. 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 She is mostly symptomatic at this point from her Raynaud's disease. She has noticed improvement to her fingers since she started Nefidipine 10 mg QD since last visit. She has had less activity of ischemia and its associated symptoms in the right 3rd finger. She is optimistic that this will slow progression and prevents further amputation as did the distal phalanx of the 2nd finger in that hand. She remains on amlodipine 5 mg b.i.d., and Cialis 40 mg daily. She knows the Cialis is helpful because when she misses it for a few days she gets more ischemic symptoms. She also he uses the hydrocodone at night mostly for pain but sometimes during the day as well. She has a topical lidocaine ointment she puts on at night at times. She remains on gabapentin 300 t.i.d. and ibuprofen 600 b.i.d. both p.r.n. as well. She is on Nexium for heartburn and that seems to be controlling things. The cevimeline has helped with her dry mouth but she does still get intermittent oral ulcers which do respond to courses of prednisone even at a relatively low dose of 5-10 mg daily for a few days. She denies oral ulcers since last visit but reports that the toothpaste is very harsh and coates her mouth. She sometimes misses her dose of cevimeline and finds that her mouth coates more at these times and her oral tissue often sticks to her teeth and lips are dry. Gisela has not yet seen the eye MD and questions if she has to start HCQ given that Nifidipine has improved her fingers She is akso concerned about the out of pocket cost to her for her Health care bills. [facility] Medical History Osteopenia Raynaud's disease with gangrene GERD (gastroesophageal reflux disease) Anxiety and depression Hypothyroidism Scleroderma Rheumatoid arthritis Surgical History History of esophagogastroduodenoscopy (EGD) History of amputation of finger of right hand H/O colonoscopy H/O neck surgery Family History Other Scleroderma Social History Household Members: Family Housing: House Are you a primary primary care nurse practitioner to a significant other at home: No Do you presently have visiting nurse or other home services: No 75 years or older and lives alone: No Alcohol intake: current Alcohol intake frequency: a few times a month Alcohol type: beer Patient Tobacco Use Status: Current someday Tobacco user e-Cigarette/Vaping Use: Never Used service: No Current occupational status: employed 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 Review of Systems ENT Reports dysphagia Resp Reports no additional complaints GI Reports dysphagia and Reports heartburn Skin/Breast Reports non-healing lesions and Reports skin ulcer Physical Exam Vital Signs: Last Vital Signs Pulse 100 07/26/24 15:11 BP 110/66 07/26/24 15:11 Pulse Ox 94 07/26/24 15:11 Oxygen Delivery Method Room Air 07/26/24 15:11 BMI result Body Mass Index 24.9 Const General: cooperative, healthy appearing and comfortable Nutritional Appearance: average body habitus Orientation/consciousness: patient oriented x3 Limitations: no limitations HEENT Head: Yes normocephalic and Yes atraumatic Mouth: moist mucous membranes Resp Effort & Inspection: normal respiratory effort and able to speak in complete sentences Auscultation: clear to auscultation bilaterally Cardio Rate: regular rate Rhythm: regular rhythm Skin Other: Multiple telangiectasias Neuro General: patient oriented x3 Extrem Other: An open ulcer on the right 3rd finger, does not look infected today Right index DIP amputated Purplish discoloration of right 3rd digital tip, mildly cool to touch Shortening of left index finger.? Possible acro-osteolysis? No active synovitis Assessment & Plan Assessment & Plan (1) CREST syndrome: Comment: dx approx 2016 (Raynaud's with digital tip ulcers, acro-osteolysis, telangiectasias, GERD, +++ centromere, small pericardial effusion) Code(s): M34.1 - CR(E)ST syndrome Category: Medical Plan: This is a 64-year-old female with limited scleroderma who presents for follow- up. Today she has an active digital ulcer, it does not look infected. Esophageal dysmotility symptoms getting worse Advised patient not to pick on any scabs in her fingers Continue baby aspirin daily Continue with nifedipine 30 mg daily Continue with tadalafil 40 mg daily Use nitroglycerin paste proximal to the digital ulcers Apply Silvadene on any open ulcers Continue sertraline She recently bought he did electric gloves as instructed Her GERD is worsening, her barium swallow showed esophageal web, reflux esophagitis and signs suggestive of esophageal dysmotility. She needs an endoscopy. I referred patient to GI. She has an appointment later this month She has been taking OTC Nexium 20 mg daily. This is not nearly enough. I prescribed Nexium 40 mg Twice daily. Advised patient to take it 30 minutes before meals Sleep more elevated. Buy a wedge pillow Can continue to take hydrocodone to use as needed for painful digital ulcers Labs before next visit in 3 months (2) Raynaud's disease with gangrene: Code(s): I73.01 - Raynaud's syndrome with gangrene Category: Medical Plan: As above Plan I spent 25 minutes reviewing patient's chart, evaluating patient, ordering diagnostic workup, counseling patient and documenting in the chart Orders: Orders Complete Blood Count Auto Diff 3 Months M34.1 - CR(E)ST syndrome C Reactive Protein 3 Months M34.1 - CR(E)ST syndrome Comprehensive Met. Panel 3 Months M34.1 - CR(E)ST syndrome Erythrocyte Sedimentation Rate 3 Months M34.1 - CR(E)ST syndrome Medications: Changed From esomeprazole magnesium (Nexium) 40 mg PO DAILY 30 caps 5RF 30 days To esomeprazole magnesium (Nexium) take it 30 minute before meals 40 mg PO BID 30 days 60 caps 5RF Coding Level of Care Code Est Pt Level 4 (75795) Diagnoses CREST syndrome M34.1 Raynaud's disease with gangrene I73.01
== END 2024-07-26 16:22 | disposition home or self-care (01) ==
PROVIDERS: Visit Provider Student in an Organized Health Care Education/Training Program
DX: M34.1 CR(E)ST syndrome (principal); I73.01 Raynaud's syndrome with gangrene
CPT/HCPCS: 99214

== ENCOUNTER → 2024-07-26 15:06 | Outpatient (BNVA) | payer OTHER, MEDICAID, SELFPAY | PROVIDERS: Visit Provider Student in an Organized Health Care Education/Training Program ==

== ENCOUNTER 2024-09-19 14:44 | Outpatient (AMB) | payer OTHER, MEDICAID, SELFPAY ==
--- NOTE | 2024-09-19 14:49 | MHC.OFFVIS ---
Vital Signs 09/19/24 14:51 Height 5 ft Weight 122 lb BMI 23.8 BP 103/57 L Blood Pressure Location Lt brachial Position Sitting Pulse 100 Pulse Oximetry (%) 98 Intake Visit Reasons: esophageal stricture and GAVE/Marie pt Intake Note: Patient follow up for esophageal stricture and GAVE/ chikis was on 03/14/2022 with Marie zuniga. Patient cc: por appetite, abdominal bloating, acid reflex with burning sensation, some swallowing discomfort. sometimes SOB. Legal Paraprofessional Required: No Accompanied by: Family/Other Allergies No Known Allergies Allergy (Verified 09/19/24 14:51) HPI Comments Details: This is a 64-year-old female with past medical history of CREST (followed by Dr Yang), who is referred to our office for dysphagia. Patient reports intermittent dysphagia to solids and liquids ongoing for almost a year now. Has some good days and some bad days. No unintentional weight loss due to this. No abdominal has abdominal discomfort, that does not change with food. No changes in bowel habits. Has not had an upper endoscopy. Last colonoscopy was in 2008. She had a barium swallow 06/2024 that showed an anterior esophageal web at C5, [id number] esophageal dysmotility, esophagitis and gastritis. [facility] Medical History Osteopenia Raynaud's disease with gangrene GERD (gastroesophageal reflux disease) Anxiety and depression Hypothyroidism Scleroderma Rheumatoid arthritis Surgical History History of esophagogastroduodenoscopy (EGD) History of amputation of finger of right hand H/O colonoscopy H/O neck surgery Family History Other Scleroderma Social History Household Members: Family Housing: House Are you a primary care program resident to a significant other at home: No Do you presently have visiting nurse or other home services: No 75 years or older and lives alone: No Alcohol intake: current Alcohol intake frequency: a few times a month Alcohol type: beer Patient Tobacco Use Status: Current someday Tobacco user e-Cigarette/Vaping Use: Never Used service: No Current occupational status: employed 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 Ongoing x 1 year, mostly to solids, also feels regurgitation but no vomiting. 1. 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 2. Status post ACDF of C4-C6. 3. Mildly patulous esophagus with moderately disorganized peristalsis consistent with esophageal dysmotility. 4. Granular appearance of the esophageal mucosa. In addition there are multiple focal areas of contrast pooling. These findings are suggestive of erosive esophagitis. Recommend correlation with EGD. 5. Felinization of the mid esophageal mucosa. This is a benign finding that is associated with chronic gastroesophageal reflux. 6. Small type I hiatal hernia with severe gastroesophageal reflux. 7. Thickened appearance of the gastric rugal folds, suggestive of gastritis. Assessment & Plan Assessment & Plan (1) Dysphagia: Code(s): R13.10 - Dysphagia, unspecified Category: Medical (2) CREST syndrome: Code(s): M34.1 - CR(E)ST syndrome Category: Medical (3) Esophageal web: Code(s): Q39.4 - Esophageal web Category: Medical (4) Colon cancer screening: Code(s): Z12.11 - Encounter for screening for malignant neoplasm of colon Category: Medical Plan 1. Dysphagia is likely secondary to combination of esophageal web, erosive esophagitis and esophageal dysmotility secondary to CREST. Plan: -patient already started on Nexium b.i.d. by life enrichment director -EGD to be booked with possible dilation 2. Patient is also overdue for screening colonoscopy, this will be booked with the EGD. She reports severe constipation at baseline. Instructions for modified prep as below provided. Plan: -PEG prep given -patient aware to start bisacodyl 2 days before and clear liquid diet 36 hours prior to colonoscopy Follow-up after procedures Medications: New bisacodyl Start 2 days before the colonoscopy 10 mg (2 x 5 mg) PO BID 2 days 8 tabs 0RF peg 3350-electrolytes 236-22.74-6.74 -5.86 gram (Golytely) as per split prep instructions, until fecal effluent is clear 240 mL PO Q10M 4,000 mL 0RF colonoscopy Patient Instructions: 2 days before: Start bisacodyl 2 tabs twice a day. Start clear liquids in the evening 1 day before: continue the bisacodyl 2 tabs twice a day. Cont the clear liquid diet Day of the procedure: nothing to eat or drink - come with a responsible adult who can take you back home. Coding Level of Care Code New Pt Level 4 (93637) Complex EM visit Add On G2211 Diagnoses Dysphagia R13.10 CREST syndrome M34.1 Esophageal web Q39.4 Colon cancer screening Z12.11
[2024-09-19 14:51] VITALS: BP 103/57; PULSE 100; O2SAT 98; BMI 23.8
--- OUTSIDE RECORDS SUMMARY | 2024-09-19 19:06 | XMS_ITS | Clinical Summary ---
Author Organization [facility] Address [address] [place] [address] Care Team Providers Care Hash Slinger Name Role Phone Suki Harrell PA-C Primary Care Provider [phone] Allergies No known active allergies Medications Medication Sig Dispensed Refills Start Date End Date Status levothyroxine (SYNTHROID) tablet 88 mcg Take 1 tablet (88 mcg total) by mouth every morning on an empty stomach. 0 Active sertraline (ZOLOFT) 100 MG tablet Take 1 tablet (100 mg total) by mouth daily. 0 Active NIFEdipine (PROCARDIA XL) 30 MG 24 hr tablet Take 1 tablet (30 mg total) by mouth daily. 0 Active tadalafil (CIALIS) 20 MG tablet Take 2 tablets (40 mg total) by mouth daily as needed for erectile dysfunction. 0 Active gabapentin (NEURONTIN) 600 MG tablet Take 1 tablet (600 mg total) by mouth 2 (two) times a day. 0 Active ALPRAZolam (XANAX) 0.5 MG tablet Take 1 tablet (0.5 mg total) by mouth every night at bedtime as needed for sleep. 0 Active esomeprazole (NexIUM) 40 MG capsule Take 1 capsule (40 mg total) by mouth every morning before breakfast. 0 Active HYDROcodone-acetamino phen (NORCO) 5-325 MG per tablet Take 1 tablet by mouth every 6 (six) hours as needed for pain. 0 Active Active Problems No known active problems Encounters Date Type Department Care Team Description 06/21/2024 4:00 PM EDT Follow-Up [facility] [address] [place] [id number] Blair Martinez MD Anemia, unspecified type (Primary Dx) 06/21/2024 Travel from Last 3 Months Social History Tobacco Use Types Packs/Day Years Used Date Smoking Tobacco: Never Smokeless Tobacco: Never Tobacco Cessation:Counseling Given: Not Answered Alcohol Use Standard Drinks/Week Comments Not Currently 0 (1 standard drink = 0.6 oz pur e alcohol) Sex and Gender Information Value Date Recorded Sex Assigned at Female 05/18/2024 12:06 PM EDT Gender Identity Not on file Sexual Orientation Not on file Job Start Date Occupation Industry Not on file Not on file Not on file Last Filed Vital Signs Vital Sign Reading Time Taken Comments Blood Pressure 138/72 06/21/2024 3:47 PM EDT Pulse 85 06/21/2024 3:47 PM EDT Temperature 37.2 ??C (99 ??F) 06/21/2024 3:47 PM EDT Respiratory Rate - - Oxygen Saturation 100% 06/21/2024 3:47 PM EDT Inhaled Oxygen Concentration - - Weight 57.6 kg (127 lb) 06/21/2024 3:47 PM EDT Height 152.4 cm (5') 06/06/2024 3:54 PM EDT Body Mass Index 24.8 06/06/2024 3:54 PM EDT Plan of Treatment Health Maintenance Due Date Last Done Comments Hepatitis C Screening 1960 Depression Screening 1972 Preventative Health Evaluation 1978 DTap / Tdap / Td (1 - Tdap) 1979 Cervical Cancer Screening (Pap Smear) 1981 Colon Cancer Screening (Colonoscopy) 2005 Breast Cancer Screening (Mammogram) 2010 COVID-19 Vaccine (2 - 2023-2 5 season) 2024 05/08/2021 Influenza Vaccine (#1) 2024 , 07/07/2022 Pneumococcal Vaccine (1 of 1 - PCV) 2025 RSV Adult > 60+ Yrs or (1 - 1-dose 75+ series) 2035 Shingrix-Zoster Vaccine Completed 05/29/20, 08/30/2022 Hepatitis B Vaccines Aged Out No long er eligible based on patient's age to complete this topic Pneumococcal Vaccine Aged Out No long er eligible based on patient's age to complete this topic RSV Ped < 20 months Aged Out No longe r eligible based on patient's age to complete this topic Care Teams Hash Slinger Relationship Specialty Start Date End Date Suki Harrell PAChristenC [address] [facility] [address] [facility] [place] [address] PCP - General Physician Bread Packer 06/06/24
--- OUTSIDE RECORDS SUMMARY | 2024-09-19 19:06 | XMS_ITS | Clinical Summary ---
Author Organization [facility] [employer] Address [address] [facility] [place] [address] Care Team Providers Care Obstetrics Gynecology Physician Name Role Phone Unavailable Primary Care Provider Unavailabl e Social History Tobacco Use Types Packs/Day Years Used Date Smoking Tobacco: Never Assessed Comments Unknown Sex and Gender Information Value Date Recorded Sex Assigned at Not on file Legal Sex Female 8:50 AM EST Gender Identity Not on file Sexual Orientation Not on file Plan of Treatment Health Maintenance Due Date Last Done Comments Colorectal Cancer: COLONOSCO PY Screening every 10 yrs (or Modifier) 1960 Depression: Screening Annual ly using PHQ-2/9 in Adults 18 yrs or above (or HM Modifier)([facility]) 1978 Hepatitis C Virus Infection in Adolescents and Adults: Screening (or Modifier) ([facility]) 1978 SDOH Screening Reminder: Omayra francis for all adults ([facility]) 1978 Tobacco Smoking Cessation: i n Adults excluding Women: Behavioral and Pharmacotherapy Interventions ([facility]) 1978 DTaP/Tdap/Td Vaccines ([facility]) (1 - Tdap) 1979 Cervical Cancer Screenin 1-65 yrs of age (or Modifier) 1981 Cervical Cancer Screening: P ap every 3 yrs pts age 21-65 1981 Cervical Cancer: Pap Screeni ng with Modifier timing ([facility]) 1981 Cervical Cancer: hrHPV alone or with cotesting Pap for Pts 30-65yrs screening every 5yrs ([facility]) 1981 Colorectal Cancer Screening 45 -75 Yrs (or HM Modifier) 2005 Colorectal Cancer: FLEXIBLE SIGMOIDOSCOPY Screening every 5 yrs 2005 Colorectal Cancer: Fecal Immunochemical Test (FIT) Annually [facility] 2005 Colorectal Cancer: High-sens itivity gFOBT Screening Annually [facility] 2005 Colorectal Cancer: Stool Col oguard Screening every 3 yrs 2005 Colorectal Cancer:CT Colonog alejandra Screening every 5 yrs 2005 Lipid Screening: Every 5 yrs for Women aged 45+ (or HM Modifier) ([facility]) 2006 Breast Cancer: Screening Omayra ually age 50-74 yrs (or HM Modifier)([facility]) 2010 Zoster/Shingles Vaccine Seri es Screening: Adults aged 18+ yrs (or HM Modifiers)([facility]) (1 of 2) 2010 RSV Vaccines (1 - 1-dose 60+ series) 2020 Flu Vaccination: Yearly for ages 18mos through 64 years (or Modifier)([facility]) 03/24/2024 COVID-19 Vaccine Screening: Initial Series and Booster Status ([facility]) (2023- season) 2024 Pneumococcal Vaccination Scr eening: Pts 0-19 & 19-64 yrs of age ([facility]) Aged Out No longer eligible based on patient's age to complete this topic Medical Devices Not on file
== END 2024-09-19 15:27 | disposition home or self-care (01) ==
PROVIDERS: Visit Provider Internal Medicine
DX: R13.10 Dysphagia, unspecified (principal); Q39.4 Esophageal web; M34.1 CR(E)ST syndrome; Z12.11 Encounter for screening for malignant neoplasm of colon
CPT/HCPCS: 99204; G2211

== ENCOUNTER → 2024-09-19 14:44 | Outpatient (BNVA) | payer OTHER, MEDICAID, SELFPAY | PROVIDERS: Visit Provider Internal Medicine ==

== ENCOUNTER 2024-12-29 07:41 | Day surgery (SDC) | payer OTHER, SELFPAY ==
--- OUTSIDE RECORDS SUMMARY | 2024-12-06 15:19 | XMS_ITS | Clinical Summary ---
Author Organization [facility] Address [address] [place] [address] Care Team Providers Care Goodyear Stitcher Name Role Phone Suki Harrell PA-C Primary Care Provider [phone] Allergies No known active allergies Medications Medication [...] Active Active Problems No known active problems Social History Tobacco Use Types Packs/Day Years [...] age to complete this topic Care Teams Good[employer] Stitcher Relationship Specialty Start Date End Date Suki Harrell PA-C [address] [facility] [address] [facility] [place] [address] PCP - General Physician Body Builder 06/06/24
[2024-12-27 10:54] VITALS: BMI 23.8
--- NOTE | 2024-12-28 08:39 | HO.ANESPROP2 ---
Documented by User: Vivi Rubin NP 12/28/24 08:41 HPI - Anesthesia Eval Consult details Narrative: 64yo F for Upper Endoscopy and Colonoscopy Prednisone 5mg daily PMFSH Active Problems Active Problems: All Active Problems Colon cancer screening (Acute) Esophageal web (Acute) Dysphagia (Acute) Iron deficiency anemia (Acute) Encounter for medication monitoring (Acute) Decreased diffusion capacity of lung (Acute) CREST syndrome (Acute) Osteomyelitis of finger of right hand (Acute) Open wound of right index finger (Acute) Anemia (Acute) Bloating (Acute) Chronic GERD (Acute) Sclerodactyly (Acute) Depression (Acute) Anxiety (Acute) Raynaud's disease with gangrene (Acute) Past Medical History Medical History CREST syndrome Osteopenia Raynaud's disease with gangrene GERD (gastroesophageal reflux disease) Anxiety and depression Hypothyroidism Scleroderma Rheumatoid arthritis Family History Family History Other Scleroderma Family history of problems with anesthesia: No Surgical History Surgical History History of esophagogastroduodenoscopy (EGD) History of amputation of finger of right hand H/O colonoscopy H/O neck surgery History of Problems with Anesthesia: No Social History Social History Household Members: Family Housing: House Are you a primary healthcare account manager to a significant other at home: No Do you presently have visiting nurse or other home services: No Alcohol intake: current Alcohol intake frequency: holidays/special occasions only Alcohol type: beer Patient Tobacco Use Status: Current someday Tobacco user Tobacco use type: Cigarette e-Cigarette/Vaping Use: Never Used service: No Current occupational status: employed 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 Allergy/AdvReac Type Severity Reaction Status Date / Time No Known Allergies Allergy Verified 12/29/24 08:59 Home Medications ?Medication ?Instructions ?Recorded ?Confirmed ?Last Taken ?Type alprazolam 0.5 mg tablet (Xanax) 0.5 mg PO DAILY PRN Anxiety 02/18/22 12/29/24 Unknown History gabapentin 600 mg tablet 600 mg PO TID 06/22/23 12/29/24 Unknown History levothyroxine 88 mcg tablet 88 mcg PO DAILY 06/22/23 12/29/24 Unknown History sertraline 50 mg tablet (Zoloft) 50 mg PO DAILY 05/10/24 12/29/24 Unknown History dextroamphetamine-amphetamine 5 mg 1 tab PO BID 07/26/24 12/29/24 Unknown History tablet Exam Height,Weight and Vital Signs: Height 5 ft Weight 55.338 kg Assessment and Plan Assessment Anesthesia Assessment: Chart Reviewed Final Anesthetic Review Family History of Problems with Anesthesia: No History of Problems with Anesthesia: No Documented by User: Azra Joy MD 12/29/24 11:58 PMFSH Past Medical History Medical History CREST syndrome Osteopenia Raynaud's disease with gangrene GERD (gastroesophageal reflux disease) Anxiety and depression Hypothyroidism Scleroderma Rheumatoid arthritis Family History Family History Other Scleroderma Family history of problems with anesthesia: No Surgical History Surgical History History of esophagogastroduodenoscopy (EGD) History of amputation of finger of right hand H/O colonoscopy H/O neck surgery History of Problems with Anesthesia: No Social History Social History Household Members: Family Housing: House Are you a primary healthcare account manager to a significant other at home: No Do you presently have visiting nurse or other home services: No Alcohol intake: current Alcohol intake frequency: holidays/special occasions only Alcohol type: beer Patient Tobacco Use Status: Current someday Tobacco user Tobacco use type: Cigarette e-Cigarette/Vaping Use: Never Used service: No Current occupational status: employed 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 Allergy/AdvReac Type Severity Reaction Status Date / Time No Known Allergies Allergy Verified 12/29/24 08:59 Home Medications ?Medication ?Instructions ?Recorded ?Confirmed ?Last Taken ?Type alprazolam 0.5 mg tablet (Xanax) 0.5 mg PO DAILY PRN Anxiety 02/18/22 12/29/24 Unknown History gabapentin 600 mg tablet 600 mg PO TID 06/22/23 12/29/24 Unknown History levothyroxine 88 mcg tablet 88 mcg PO DAILY 06/22/23 12/29/24 Unknown History sertraline 50 mg tablet (Zoloft) 50 mg PO DAILY 05/10/24 12/29/24 Unknown History dextroamphetamine-amphetamine 5 mg 1 tab PO BID 07/26/24 12/29/24 Unknown History tablet Exam Height,Weight and Vital Signs: Height 5 ft Weight 55.338 kg Vital Signs Temp Pulse Resp BP Pulse Ox O2 Del Method 12/29/24 09:00 97.9 F 75 14 126/57 L 98 Room Air Airway Mallampati Class: III (Small mouth opening) TM Dist: >3cm Neck ROM: Limited Partial: Upper (Patient declines to remove upper partial. States it is in tight. Aware of possibility of damage, dislodgement, aspiration ) Loose/Missing/Broken Teeth: Yes (Missing molars. Denies broken or loose teeth) Heart: RRR Lungs: CTAB Assessment and Plan Assessment Anesthesia Assessment: Anesthesia Plan Discussed and Chart Reviewed Final Anesthetic Review Family History of Problems with Anesthesia: No History of Problems with Anesthesia: No NPO: Yes ASA Class: III Final Preanesthetic Review: No Changes in Pt Med Stat, Meds/Allgs Chart Reviewed, Consent Obtained/Reviewed and Anes Risks/Benef Reviewed Patient Risk: Intermediate Procedure Risk: Low Assessment/Block/Sedation in SS: Assess/Block/Sedation-SS Anesthetic Plan Anesthetic Plan: TIVA Disposition: Standard PACU
[2024-12-29 09:00] VITALS: BP 126/57; PULSE 75; RESP 14; TEMP 36.6; O2SAT 98; BMI 23.2
[2024-12-29] MEDS: Lactated Ringers 1,000 ML 100 ML IVCONT (09:04)
--- NOTE | 2024-12-29 09:16 | MHC.SHP ---
Pre-Procedural Eval Section A - 24 Hr Update-Section A only Date of Service: 12/29/24 Section B - Complete if H&P > 30 days Chief Complaint: Dysphagia, screening Details of Present Illness: Osteopenia Raynaud's disease with gangrene GERD (gastroesophageal reflux disease) Anxiety and depression Hypothyroidism Scleroderma Rheumatoid arthritis Surgical History History of esophagogastroduodenoscopy (EGD) History of amputation of finger of right hand H/O colonoscopy H/O neck surgery Present Medications: see Short Stay Collaborative assessment Allergies: Allergies Allergy/AdvReac Type Severity Reaction Status Date / Time No Known Allergies Allergy Verified 12/29/24 08:59 Review of Systems Review of Systems Comment: Ten point ROS negative Exam Exam Comment: Gen appear: No acute distress HEENT: no icterus Chest: No overt resp distress Abd: soft, nontender, nondistended Psych: Stable affect, answering questions appropriately Neuro: A/Ox3 noted to move all extremities spontaneously Ext: no peripheral edema Plan Diagnosis/Plan: Unchanged I have reviewed the history and physical and performed a pertinent physical examination on my patient. No changes have occurred unless specified. Time Spent With Patient Time: Total time managing care of this patient today ____ minutes.
--- NOTE | 2024-12-29 11:52 | P.OPN-COLO_ITS ---
Colonoscopy Operative Note Operative Note Date of Service: 12/29/24 Narrative: Procedure: Upper endoscopy and colonoscopy Indication: Dysphagia, screening Endoscopist: Dawn Noriega MD Anesthesia Provider: Dr Azra Joy Anesthesia type: MAC Instrument: [id number]-[id number], [id number]-[id number] and [id number] EGD Procedure:?? The procedure, indications, preparation and potential complications were reviewed with the patient, who indicated understanding and gave written informed consent to proceed. The endoscope was introduced through the mouth, and advanced to the 2nd part of the duodenum. The mucosa was carefully examined on slow withdrawal of the endoscope. The patient tolerated the procedure well. There were no immediate complications.? EGD Findings:? * Esophagus:? There was a partially obstructing web in upper esophagus. White exudates in middle and lower esophagus suspicious for kelli esophagus. Cold forceps biopsies were taken for histology. * Stomach:? Normal gastric mucosa. Retroflexion was performed in the cardia. * Duodenum:? Normal duodenal mucosa. Additional intervention: Soft tip Savary wire was introduced through the biopsy channel of the gastroscope and advanced to the antrum. ?The gastroscope was then backed out. ?Savary Marge bougie was advanced over the guidewire and the esophagus was dilated from 12.8 to 15 mm with resistance felt. ?On relook, scant heme and tear was noted confirming successful interruption of the web. ? Colonoscopy Procedure:? The patient was then turned for the colonoscopy. A digital rectal exam was performed which was normal.? A distal attachment cap was affixed to the tip of the scope and the colonoscope was then inserted through the anus and advanced through the colon and advanced to the hepatic flexure. Due to significant looping despite pressure, the scope was then changed to adult colonoscope and then cecum could be reached at 90 cm. Appendiceal orifice and ileocecal valve were identified. Mucosa was carefully examined under high definition white light as the instrument was slowly withdrawn in a retrograde panoramic fashion. Retroflexion was performed in rectum. The procedure was somewhat difficult due to looping of the scope. The quality of the prep was BBPS:2+3+2 = adequate Withdrawal time 7 minutes Limitations: No limitations Findings: Mucosa: Small 5 mm scattered AVM in sigmoid colon and one in transverse colon. Neither of these were bleeding or had stigmata of recent bleeding. Protruding lesions: * Small internal hemorrhoids without stigmata of recent bleeding. Impression: 1. R/o kelli esophagitis (biopsy) 2. Esophageal web (dilation) 3. Hiatal hernia 4. Normal stomach 5. Normal duodenum 6. Nonbleeding AVMs 7. Internal hemorrhoids Recommendations:?? * Follow-up path results * Fluconazole 200 mg PO if kelli + * Avoid NSAIDs * Consider CBC and iron studies to r/o TRACY * Repeat EGD for updilation in 2-3 months * Repeat colonoscopy for asymptomatic colorectal ca screening in 10 years. Consider using an abd binder and starting with adult scope.
[2024-12-29 11:55] VITALS: BP 107/56; PULSE 66; RESP 19; TEMP 36.6; O2SAT 100
[2024-12-29 12:12] VITALS: BP 96/67; PULSE 84; RESP 18; TEMP 36.3; O2SAT 100
== END 2024-12-29 12:29 | disposition home or self-care (01) ==
PROVIDERS: Visit Provider Internal Medicine
PROC: (CPT 45378; principal; 2024-12-29 10:50)
DX: Z12.11 Encounter for screening for malignant neoplasm of colon (principal); K55.20 Angiodysplasia of colon without hemorrhage; K64.8 Other hemorrhoids; K56.2 Volvulus; K44.9 Diaphragmatic hernia without obstruction or gangrene; Q39.4 Esophageal web; K22.2 Esophageal obstruction; B37.81 Candidal esophagitis; R13.10 Dysphagia, unspecified; M34.1 CR(E)ST syndrome; D50.9 Iron deficiency anemia, unspecified; I73.01 Raynaud's syndrome with gangrene; E03.9 Hypothyroidism, unspecified; F17.200 Nicotine dependence, unspecified, uncomplicated; Z79.82 Long term (current) use of aspirin; Z79.899 Other long term (current) drug therapy
CPT/HCPCS: 45378; 43248; 43239; 88305; 88312; C1769; J2003; J2704

== ENCOUNTER → 2024-12-29 07:41 | Outpatient (BNV) | payer OTHER, SELFPAY | PROVIDERS: Visit Provider Internal Medicine | DX: Z12.11 Encounter for screening for malignant neoplasm of colon (principal); Q27.33 Arteriovenous malformation of digestive system vessel; K64.8 Other hemorrhoids; R13.10 Dysphagia, unspecified; Q39.4 Esophageal web; K20.90 Esophagitis, unspecified without bleeding | CPT/HCPCS: 43239; 43248; 45378 ==

== ENCOUNTER 2025-01-11 13:06 | Outpatient (AMB) | payer OTHER, SELFPAY ==
--- NOTE | 2025-01-11 13:07 | MHC.OFFVIS ---
Intake Visit Reasons: s/p double Intake Note: ESTABLISHED PATIENT for s/p double. Telehealth visit. CC; C.O. Bloating, abd distention, general abd discomfort, mild to moderate fecal incontinence per pt. Pt denies any additional concerns at this time. Allergies No Known Allergies Allergy (Verified 12/29/24 08:59) HPI Comments Details: This is a 64-year-old female with past medical history of CREST (followed by Dr Yang), who is referred to our office for dysphagia. Patient reports intermittent dysphagia to solids and liquids ongoing for almost a year now. Has some good days and some bad days. No unintentional weight loss due to this. No abdominal has abdominal discomfort, that does not change with food. No changes in bowel habits. Has not had an upper endoscopy. Last colonoscopy was in 2008. 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 12/29/24: 1. R/o kelli esophagitis (biopsy) 2. Esophageal web (dilation) 3. Hiatal hernia 4. Normal stomach 5. Normal duodenum 6. Nonbleeding AVMs 7. Internal hemorrhoids Path: Esophagus, biopsy: Squamous mucosa with spongiosis, many intraepithelial neutrophils, and few intraepithelial eosinophils (up to 1 per high-power field), consistent with active esophagitis; no fungi identified; no columnar mucosa present. 01/11/25: Dysphagia a lot better since dilation. Has not heard re repeat EGD. Continues to be bloated, despite taking ppi for reflux. This is mostly post prandial. Occurs even when shes not constipated. Bowels are soft. Has occ passive incontinence. Sometimes has soft stool in underwear sometimes hard pellet. [facility] Medical History CREST syndrome Osteopenia Raynaud's disease with gangrene GERD (gastroesophageal reflux disease) Anxiety and depression Hypothyroidism Scleroderma Rheumatoid arthritis Surgical History History of esophagogastroduodenoscopy (EGD) History of amputation of finger of right hand H/O colonoscopy H/O neck surgery Family History Other Scleroderma Social History (Reviewed 01/11/25 @ 13:07 by Karel Steward [facility]) Household Members: Family Housing: House Are you a primary floor care technician to a significant other at home: No Do you presently have visiting nurse or other home services: No 75 years or older and lives alone: No Alcohol intake: current Alcohol intake frequency: holidays/special occasions only Alcohol type: beer Patient Tobacco Use Status: Current someday Tobacco user Tobacco use type: Cigarette e-Cigarette/Vaping Use: Never Used service: No Current occupational status: employed 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 Review of Systems Const All systems reviewed & are unremarkable except as noted in HPI and below Physical Exam Vital Signs: phone telehealth Telehealth Telehealth Telehealth Platform: Telephone Location of provider rendering services: practice address Location of patient: address on file Patient Identification confirmed using: Name, : Yes Telehealth method: voice only Patient verbally consented to treatment: Yes Patient verbally consented to billing insurance company: Yes Patient informed of any privacy concerns related to visit: Yes Minutes spent on Phone/Video with Pt.: 15 Assessment & Plan Assessment & Plan (1) Fecal incontinence: Code(s): R15.9 - Full incontinence of feces Category: Medical (2) Esophageal web: Code(s): Q39.4 - Esophageal web Category: Medical (3) Dysphagia: Code(s): R13.10 - Dysphagia, unspecified Category: Medical (4) CREST syndrome: Code(s): M34.1 - CR(E)ST syndrome Category: Medical (5) Bloating: Code(s): R14.0 - Abdominal distension (gaseous) Category: Medical (6) Chronic GERD: Comment: EGD 15 years ago- OTC PPI intermittent- Code(s): K21.9 - Gastro-esophageal reflux disease without esophagitis Category: Medical Plan 1. Dysphagia Likely 2/2 esophageal web and GERD. Better with dilation done 2 weeks ago. Will likely need 1-2 more egd's for dilation to goal of 18-20 mm. 2. Fecal incontinence Reviewed that unfortunately quite common in pts with scleroderma due to rectal hyposensitivity and abnormal RAIR. Other possibilities could be sphincter incompetence, pelvic floor dyssynergia. Plan: - Add fiber as bulking agent - Trial of imodium kanu on days when stools are soft/mushy - Timed rectal evacuations - MR defecography - Low threshold to proceed with ARMS based on results Follow up 3 months Orders: Orders MR pelvis w con 01/11/25 R15.9 - Full incontinence of feces Medications: New simethicone (Gas Relief (simethicone)) 80 mg PO BID-TID PRN 120 tabs 0RF abdominal distention Coding Level of Care Code Tele Est Pt Level 4 (71322) Diagnoses Fecal incontinence R15.9 Esophageal web Q39.4 Dysphagia R13.10 CREST syndrome M34.1 Bloating R14.0 Chronic GERD K21.9
--- OUTSIDE RECORDS SUMMARY | 2025-01-11 13:41 | XMS_ITS | Clinical Summary ---
Author Organization [facility] Address [address] [place] [address] Care Team Providers Care Global Engineering Manager Name Role Phone Suki Harrell PA-C Primary Care Provider [phone] [phone] Allergies No known active allergies Medications Medication [...] age to complete this topic Care Teams Global Engineering Manager Relationship Specialty Start Date End Date Suki Harrell PA-C [address] [facility] [address] [facility] [place] [address] PCP - General Physician Call Center Coordinator 06/06/24
== END 2025-01-11 13:53 | disposition home or self-care (01) ==
LOC: HO.HGI 13:06
PROVIDERS: Visit Provider Internal Medicine
DX: R15.9 Full incontinence of feces (principal); Q39.4 Esophageal web; R13.10 Dysphagia, unspecified; M34.1 CR(E)ST syndrome; R14.0 Abdominal distension (gaseous); K21.9 Gastro-esophageal reflux disease without esophagitis
CPT/HCPCS: 98012

== ENCOUNTER 2025-03-30 06:21 | Day surgery (SDC) | payer OTHER, SELFPAY ==
--- OUTSIDE RECORDS SUMMARY | 2025-03-06 15:50 | XMS_ITS | Clinical Summary ---
[facility] Organization [facility] Address [address] [place] [address] Care Team Providers Care Support Assistant Name Role Phone Suki Harrell PA-C Primary Care Provider +1 [phone] Allergies No known active allergies Medications Medication [...] 85 06/21/2024 3:47 PM EDT Temperature 37.2 C (99 F) 06/21/2024 3:47 PM EDT Respiratory Rate - [...] 5 season) 2024 05/08/2021 Influenza Vaccine (#1) 2025 , 07/07/2022 Pneumococcal Vaccine (1 of 1 [...] age to complete this topic Care Teams Support Assistant Relationship Specialty Start Date End Date Suki Harrell PA-C 57 [facility] [address] [facility] [place] [address] PCP - General Physician Flatwork Assembler 06/06/24
[2025-03-28 11:03] VITALS: BMI 24.0
--- NOTE | 2025-03-29 08:38 | HO.ANESPROP2 ---
Documented by User: Vivi Rubin NP 03/29/25 08:42 HPI - Anesthesia Eval Consult details Narrative: 64yo F for Upper Endoscopy Prednisone 5mg daily for rheumotologic PMFSH Active Problems Active Problems: All Active Problems Pacemaker (Acute) Fecal incontinence (Acute) Colon cancer screening (Acute) Esophageal web (Acute) Dysphagia (Acute) Iron deficiency anemia (Acute) Encounter for medication monitoring (Acute) Decreased diffusion capacity of lung (Acute) CREST syndrome (Acute) Osteomyelitis of finger of right hand (Acute) Open wound of right index finger (Acute) Anemia (Acute) Bloating (Acute) Chronic GERD (Acute) Sclerodactyly (Acute) Depression (Acute) Anxiety (Acute) Raynaud's disease with gangrene (Acute) Past Medical History Medical History (Updated 03/29/25 @ 08:41 by Vivi Rubin NP) CREST syndrome Osteopenia Raynaud's disease with gangrene GERD (gastroesophageal reflux disease) Anxiety and depression Hypothyroidism Scleroderma Rheumatoid arthritis Family History Family History Other Scleroderma Family history of problems with anesthesia: No Surgical History Surgical History (Updated 03/28/25 @ 11:34 by Mignon Craft RN) History of esophagogastroduodenoscopy (EGD) (12/30/24) History of esophagogastroduodenoscopy (EGD) History of amputation of finger of right hand H/O colonoscopy H/O neck surgery History of Problems with Anesthesia: No Social History Social History Household Members: Family Housing: House Are you a primary home care physical therapist to a significant other at home: No Do you presently have visiting nurse or other home services: No Alcohol intake: current Alcohol intake frequency: holidays/special occasions only Alcohol type: beer Patient Tobacco Use Status: Never used Tobacco Tobacco use type: Cigarette e-Cigarette/Vaping Use: Never Used Use of substances other than those prescribed or required for medical reasons: No Advance Directives: No Advance Directives Information Provided: Yes service: No Current occupational status: employed 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 Allergy/AdvReac Type Severity Reaction Status Date / Time No Known Allergies Allergy Verified 12/29/24 08:59 Home Medications ?Medication ?Instructions ?Recorded ?Confirmed ?Last Taken ?Type alprazolam 0.5 mg tablet (Xanax) 0.5 mg PO DAILY PRN Anxiety 02/18/22 12/29/24 Unknown History gabapentin 600 mg tablet 600 mg PO TID 06/22/23 12/29/24 Unknown History sertraline 50 mg tablet (Zoloft) 50 mg PO DAILY 05/10/24 12/29/24 Unknown History dextroamphetamine-amphetamine 5 mg 1 tab PO BID 07/26/24 12/29/24 Unknown History tablet dextroamphetamine-amphetamine 10 tab PO 01/11/25 Unknown History mg tablet levothyroxine 100 mcg tablet 100 mcg PO DAILY 01/11/25 03/30/25 05:00 History quetiapine 50 mg tablet mg PO 01/11/25 Unknown History sertraline 100 mg tablet 100 mg PO DAILY 01/11/25 Unknown History Exam Height,Weight and Vital Signs: Height 5 ft 0.24 in Weight 56.2 kg Assessment and Plan Assessment Anesthesia Assessment: Chart Reviewed Final Anesthetic Review Family History of Problems with Anesthesia: No History of Problems with Anesthesia: No Documented by User: Luciano Pettit MD 03/30/25 08:11 [facility] Past Medical History Medical History (Updated 03/29/25 @ 08:41 by Vivi Rubin NP) CREST syndrome Osteopenia Raynaud's disease with gangrene GERD (gastroesophageal reflux disease) Anxiety and depression Hypothyroidism Scleroderma Rheumatoid arthritis Family History Family History Other Scleroderma Surgical History Surgical History (Updated 03/28/25 @ 11:34 by Mignon Craft RN) History of esophagogastroduodenoscopy (EGD) (12/30/24) History of esophagogastroduodenoscopy (EGD) History of amputation of finger of right hand H/O colonoscopy H/O neck surgery Social History Social History Household Members: Family Housing: House Are you a primary home care physical therapist to a significant other at home: No Do you presently have visiting nurse or other home services: No Alcohol intake: current Alcohol intake frequency: holidays/special occasions only Alcohol type: beer Patient Tobacco Use Status: Never used Tobacco Tobacco use type: Cigarette e-Cigarette/Vaping Use: Never Used Use of substances other than those prescribed or required for medical reasons: No Advance Directives: No Advance Directives Information Provided: Yes service: No Current occupational status: employed 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 Allergy/AdvReac Type Severity Reaction Status Date / Time No Known Allergies Allergy Verified 12/29/24 08:59 Home Medications ?Medication ?Instructions ?Recorded ?Confirmed ?Last Taken ?Type alprazolam 0.5 mg tablet (Xanax) 0.5 mg PO DAILY PRN Anxiety 02/18/22 12/29/24 Unknown History gabapentin 600 mg tablet 600 mg PO TID 06/22/23 12/29/24 Unknown History sertraline 50 mg tablet (Zoloft) 50 mg PO DAILY 05/10/24 12/29/24 Unknown History dextroamphetamine-amphetamine 5 mg 1 tab PO BID 07/26/24 12/29/24 Unknown History tablet dextroamphetamine-amphetamine 10 tab PO 01/11/25 Unknown History mg tablet levothyroxine 100 mcg tablet 100 mcg PO DAILY 01/11/25 03/30/25 05:00 History quetiapine 50 mg tablet mg PO 01/11/25 Unknown History sertraline 100 mg tablet 100 mg PO DAILY 01/11/25 Unknown History Exam Airway Mallampati Class: II TM Dist: <=3cm Neck ROM: Full Partial: Upper (pt says that her partial comes out only w great difficulty. wants to keep it in. ok w Dr. Noriega.) Heart: ok Lungs: ok. Assessment and Plan Assessment Anesthesia Assessment: Anesthesia Plan Discussed Final Anesthetic Review NPO: Yes ASA Class: III Final Preanesthetic Review: No Changes in Pt Med Stat, Meds/Allgs Chart Reviewed, Consent Obtained/Reviewed and Anes Risks/Benef Reviewed Patient Risk: Intermediate Procedure Risk: Intermediate Anesthetic Plan Anesthetic Plan: Agree w/ Assess. and Plan and TIVA Disposition: Standard PACU
[2025-03-30 06:28] VITALS: BMI 24.5
[2025-03-30 06:39] VITALS: BP 119/52; PULSE 79; RESP 18; TEMP 36.7; O2SAT 98
[2025-03-30] MEDS: Lactated Ringers 1,000 ML 100 ML IVCONT (06:40)
--- NOTE | 2025-03-30 07:40 | P.HPSUR_ITS ---
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 CREST syndrome Osteopenia Raynaud's disease with gangrene GERD (gastroesophageal reflux disease) Anxiety and depression Hypothyroidism Scleroderma Rheumatoid arthritis Surgical History History of esophagogastroduodenoscopy (EGD) History of amputation of finger of right hand H/O colonoscopy H/O neck surgery Present Medications: see Short Stay Collaborative assessment Allergies: Allergies Allergy/AdvReac Type Severity Reaction Status Date / Time No Known Allergies Allergy Verified 12/29/24 08:59 Review of Systems Review of Systems Comment: Ten point ROS negative Exam Exam Comment: Gen appear: No acute distress HEENT: no icterus Chest: No overt resp distress Abd: soft, nontender, nondistended Psych: Stable affect, answering questions appropriately Neuro: A/Ox3 noted to move all extremities spontaneously Ext: no peripheral edema Plan Diagnosis/Plan: Unchanged I have reviewed the history and physical and performed a pertinent physical examination on my patient. No changes have occurred unless specified. Time Spent With Patient Time: Total time managing care of this patient today ____ minutes.
--- NOTE | 2025-03-30 08:07 | P.OP_ITS ---
Operative Note Operative Note Date of Service: 03/30/25 Narrative: Procedure: Esophagogastroduodenoscopy Endoscopist: Dawn Noriega MD Indication: Dysphagia Anesthesia Provider: Dr Luciano Pettit Anesthesia Type: MAC ?? EGD Procedure:?? The procedure, indications, preparation and potential complications were reviewed with the patient, who indicated understanding and gave written informed consent to proceed. A physical exam was performed. Patient has an upper partial that was left in as per pt's request. The endoscope was introduced through the mouth, and advanced to the second part of duodenum. The mucosa was carefully examined on slow withdrawal of the endoscope. The patient tolerated the procedure well. There were no immediate complications.? ? EGD Findings:? * Esophagus:? Normal mucosa noted in the entire esophagus. The Z line was at 37 cm. * Stomach:? Scant amount of solid food was noted in the cardia. Erythema and erosions were noted in the antrum. There was also a small 5 mm white based healing ulcer at 6 o'clock position in pre-pyloric. Cold forceps biopsies were taken for histology. Retroflexion was performed in the cardia. * Duodenum:? Normal mucosa was noted in the whole of the examined duodenum. Additional intervention: Soft tip Savary wire was introduced through the biopsy channel of the gastroscope and advanced to the antrum. ?The gastroscope was then backed out. ?Savary Marge bougie was advanced over the guidewire and the esophagus was dilated from 14 to 16 mm with resistance felt. ?On relook, small heme and tear was noted at 14 cm confirming successful dilation. ? ? EGD Impressions:? * Esophageal web (dilation) * Gastritis (biopsy) * Normal duodenum ?? Recommendations:?? * Follow biopsy results. Our office will call or send a letter with results within 7-10 days. * Continue PPI therapy. * If H pylori +, patient will be prescribed eradication therapy followed by test of cure. * Avoid NSAIDs. * Repeat EGD in 4 weeks to avoid restenosis of the web. Above has been reviewed with the patient.
[2025-03-30 08:14] VITALS: BP 95/40; PULSE 72; RESP 17; TEMP 36.7; O2SAT 98
[2025-03-30 08:30] VITALS: BP 115/51; PULSE 77; RESP 14; O2SAT 99
[2025-03-30] MEDS: Mag&Al/Sim/Diphenhyd/Lidocaine 10 ML ORAL.SUSP PO (08:30)
[2025-03-30 08:36] VITALS: BP 125/61; PULSE 70; RESP 16; TEMP 36.5; O2SAT 98
== END 2025-03-30 09:03 | disposition home or self-care (01) ==
PROVIDERS: Visit Provider Internal Medicine
PROC: 0DJ08ZZ Inspection of Upper Intestinal Tract, Via Natural or Artificial Opening Endoscopic (ICD-10-PCS; CPT 43235; principal; 2025-03-30 07:30)
DX: R13.10 Dysphagia, unspecified (principal); R10.84 Generalized abdominal pain; R14.0 Abdominal distension (gaseous); K29.50 Unspecified chronic gastritis without bleeding; Q39.4 Esophageal web; K21.9 Gastro-esophageal reflux disease without esophagitis; K44.9 Diaphragmatic hernia without obstruction or gangrene; M34.1 CR(E)ST syndrome; I73.01 Raynaud's syndrome with gangrene; E03.9 Hypothyroidism, unspecified; M85.80 Other specified disorders of bone density and structure, unspecified site; M06.9 Rheumatoid arthritis, unspecified; F41.9 Anxiety disorder, unspecified; Z79.899 Other long term (current) drug therapy; Z98.890 Other specified postprocedural states; F17.210 Nicotine dependence, cigarettes, uncomplicated
CPT/HCPCS: 43248; 43239; 88305; 88313; 88342; C1769; J2003; J2704; J3010

== ENCOUNTER → 2025-03-30 06:21 | Outpatient (BNV) | payer OTHER, SELFPAY | PROVIDERS: Visit Provider Internal Medicine | DX: R13.10 Dysphagia, unspecified (principal); K29.70 Gastritis, unspecified, without bleeding; Q39.4 Esophageal web | CPT/HCPCS: 43239; 43248 ==

== ENCOUNTER 2025-05-05 11:23 | Day surgery (SDC) | payer OTHER, SELFPAY ==
--- OUTSIDE RECORDS SUMMARY | 2025-04-11 16:29 | XMS_ITS | Clinical Summary ---
Author Organization [facility] Address [address] [place] [address] Care Team Providers Care Content Checker Name Role Phone Suki Harrell PA-C Primary Care Provider [phone] [phone] Allergies No known active allergies Medications Medication [...] age to complete this topic Care Teams Content Checker Relationship Specialty Start Date End Date Suki Harrell PA-C 57 [facility] [address] [facility] [place] [address] PCP - General Physician Body Work Auto Trimmer 06/06/24
--- NOTE | 2025-05-03 13:12 | HO.ANESPROP2 ---
Documented by User: Myranda Rodriguez NP 05/03/25 13:13 HPI - Anesthesia Eval Consult details Narrative: 65 yr old female for upper endoscopy Scleroderma/CREST syndrome: on nifedipine, topical nitroglycerin, prn hydrocodone PMFSH Active Problems Active Problems: All Active Problems (Updated 03/29/25 @ 08:41 by Vivi Rubin NP) Fecal incontinence (Acute) Colon cancer screening (Acute) Esophageal web (Acute) Dysphagia (Acute) Iron deficiency anemia (Acute) Encounter for medication monitoring (Acute) Decreased diffusion capacity of lung (Acute) CREST syndrome (Acute) Osteomyelitis of finger of right hand (Acute) Open wound of right index finger (Acute) Anemia (Acute) Bloating (Acute) Chronic GERD (Acute) Sclerodactyly (Acute) Depression (Acute) Anxiety (Acute) Raynaud's disease with gangrene (Acute) Past Medical History Medical History CREST syndrome Osteopenia Raynaud's disease with gangrene GERD (gastroesophageal reflux disease) Anxiety and depression Hypothyroidism Scleroderma Rheumatoid arthritis Family History Family History Other Scleroderma Family history of problems with anesthesia: No Surgical History Surgical History (Updated 05/05/25 @ 12:03 by Eden Paul RN) History of esophagogastroduodenoscopy (EGD) (12/30/24) History of esophagogastroduodenoscopy (EGD) History of amputation of finger of right hand H/O colonoscopy H/O neck surgery History of Problems with Anesthesia: No Social History Social History Household Members: Family Housing: House Are you a primary long term care pharmacist to a significant other at home: No Do you presently have visiting nurse or other home services: No Alcohol intake: current Alcohol intake frequency: holidays/special occasions only Alcohol type: beer Patient Tobacco Use Status: Former Tobacco user Tobacco use type: Cigarette e-Cigarette/Vaping Use: Never Used Use of substances other than those prescribed or required for medical reasons: No Are you DNR?: No Advance Directives: No Advance Directives Information Provided: Yes service: No Current occupational status: employed 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 Allergy/AdvReac Type Severity Reaction Status Date / Time No Known Allergies Allergy Verified 05/05/25 12:04 Home Medications ?Medication ?Instructions ?Recorded ?Confirmed ?Last Taken ?Type alprazolam 0.5 mg tablet (Xanax) 0.5 mg PO DAILY PRN Anxiety 02/18/22 12/29/24 Unknown History gabapentin 600 mg tablet 600 mg PO TID 06/22/23 12/29/24 Unknown History sertraline 50 mg tablet (Zoloft) 50 mg PO DAILY 05/10/24 12/29/24 Unknown History dextroamphetamine-amphetamine 5 mg 1 tab PO BID 07/26/24 12/29/24 Unknown History tablet dextroamphetamine-amphetamine 10 tab PO 01/11/25 Unknown History mg tablet levothyroxine 100 mcg tablet 100 mcg PO DAILY 01/11/25 03/30/25 05:00 History quetiapine 50 mg tablet mg PO 01/11/25 Unknown History sertraline 100 mg tablet 100 mg PO DAILY 01/11/25 Unknown History Assessment and Plan Final Anesthetic Review Family History of Problems with Anesthesia: No History of Problems with Anesthesia: No Documented by User: Tg Stone MD 05/05/25 12:27 [facility] Past Medical History Medical History CREST syndrome Osteopenia Raynaud's disease with gangrene GERD (gastroesophageal reflux disease) Anxiety and depression Hypothyroidism Scleroderma Rheumatoid arthritis Family History Family History Other Scleroderma Surgical History Surgical History (Updated 05/05/25 @ 12:03 by Eden Paul RN) History of esophagogastroduodenoscopy (EGD) (12/30/24) History of esophagogastroduodenoscopy (EGD) History of amputation of finger of right hand H/O colonoscopy H/O neck surgery Social History Social History Household Members: Family Housing: House Are you a primary long term care pharmacist to a significant other at home: No Do you presently have visiting nurse or other home services: No Alcohol intake: current Alcohol intake frequency: holidays/special occasions only Alcohol type: beer Patient Tobacco Use Status: Former Tobacco user Tobacco use type: Cigarette e-Cigarette/Vaping Use: Never Used Use of substances other than those prescribed or required for medical reasons: No Are you DNR?: No Advance Directives: No Advance Directives Information Provided: Yes service: No Current occupational status: employed 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 Allergy/AdvReac Type Severity Reaction Status Date / Time No Known Allergies Allergy Verified 05/05/25 12:04 Home Medications ?Medication ?Instructions ?Recorded ?Confirmed ?Last Taken ?Type alprazolam 0.5 mg tablet (Xanax) 0.5 mg PO DAILY PRN Anxiety 02/18/22 12/29/24 Unknown History gabapentin 600 mg tablet 600 mg PO TID 06/22/23 12/29/24 Unknown History sertraline 50 mg tablet (Zoloft) 50 mg PO DAILY 05/10/24 12/29/24 Unknown History dextroamphetamine-amphetamine 5 mg 1 tab PO BID 07/26/24 12/29/24 Unknown History tablet dextroamphetamine-amphetamine 10 tab PO 01/11/25 Unknown History mg tablet levothyroxine 100 mcg tablet 100 mcg PO DAILY 01/11/25 03/30/25 05:00 History quetiapine 50 mg tablet mg PO 01/11/25 Unknown History sertraline 100 mg tablet 100 mg PO DAILY 01/11/25 Unknown History Exam Airway Mallampati Class: II TM Dist: >3cm Neck ROM: Full Heart: rrr Lungs: cta Assessment and Plan Assessment Anesthesia Assessment: Anesthesia Plan Discussed and Chart Reviewed Final Anesthetic Review NPO: Yes ASA Class: III Final Preanesthetic Review: No Changes in Pt Med Stat, Meds/Allgs Chart Reviewed and Consent Obtained/Reviewed Patient Risk: Low Procedure Risk: Low Anesthetic Plan Anesthetic Plan: MAC: Disposition: Standard PACU
[2025-05-05 12:05] VITALS: BMI 24.2
[2025-05-05 12:25] VITALS: BP 137/64; PULSE 79; RESP 15; TEMP 37; O2SAT 97
[2025-05-05] MEDS: Lactated Ringers 1,000 ML 100 ML IVCONT (12:27)
--- NOTE | 2025-05-05 12:32 | MHC.SHP ---
Pre-Procedural Eval Section A - 24 Hr Update-Section A only Date of Service: 05/05/25 Section B - Complete if H&P > 30 days Chief Complaint: Dysphagia, Details of Present Illness: CREST syndrome Osteopenia Raynaud's disease with gangrene GERD (gastroesophageal reflux disease) Anxiety and depression Hypothyroidism Scleroderma Rheumatoid arthritis Surgical History (Reviewed 01/11/25 @ 13:07 by Karel Steward [facility]) History of esophagogastroduodenoscopy (EGD) History of amputation of finger of right hand H/O colonoscopy H/O neck surgery Present Medications: see Short Stay Collaborative assessment Allergies: Allergies Allergy/AdvReac Type Severity Reaction Status Date / Time No Known Allergies Allergy Verified 05/05/25 12:04 Review of Systems Review of Systems Comment: Ten point ROS negative Exam Exam Comment: Gen appear: No acute distress HEENT: no icterus Chest: No overt resp distress Abd: soft, nontender, nondistended Psych: Stable affect, answering questions appropriately Neuro: A/Ox3 noted to move all extremities spontaneously Ext: no peripheral edema Plan Diagnosis/Plan: Unchanged I have reviewed the history and physical and performed a pertinent physical examination on my patient. No changes have occurred unless specified. Time Spent With Patient Time: Total time managing care of this patient today ____ minutes.
--- NOTE | 2025-05-05 13:29 | P.OP_ITS ---
Operative Note Operative Note Date of Service: 05/05/25 Narrative: Procedure: Esophagogastroduodenoscopy Endoscopist: Dawn Noriega MD Indication: Dysphagia Anesthesia Provider: Amalia Ch CRNA Anesthesia Type: MAC ?? EGD Procedure:?? The procedure, indications, preparation and potential complications were reviewed with the patient, who indicated understanding and gave written informed consent to proceed. A physical exam was performed. Patient has an upper partial that was left in as per pt's request. The endoscope was introduced through the mouth, and advanced to the second part of duodenum. The mucosa was carefully examined on slow withdrawal of the endoscope. The patient tolerated the procedure well. There were no immediate complications.? ? EGD Findings:? * Esophagus:? Normal mucosa noted in the entire esophagus. The Z line was at 37 cm. * Stomach:? Normal gastric mucosa. Retroflexion was performed in the cardia. * Duodenum:? Normal mucosa was noted in the whole of the examined duodenum. Additional intervention: Soft tip Savary wire was introduced through the biopsy channel of the gastroscope and advanced to the antrum. ?The gastroscope was then backed out. ?Savary Marge bougie was advanced over the guidewire and the esophagus was dilated to 17 mm with resistance felt. ?On relook, small heme and tear was noted at 14 cm confirming successful dilation. ? ? EGD Impressions:? * Esophageal web (dilation) * Normal stomach * Normal duodenum ?? Recommendations:?? * Patient already reports minimal dysphagia. * Repeat EGD to be booked as needed for recurrence of symptoms. Above has been reviewed with the patient.
[2025-05-05 13:31] VITALS: BP 119/59; PULSE 76; RESP 14; TEMP 36.7; O2SAT 99
[2025-05-05 13:46] VITALS: BP 135/69; PULSE 67; RESP 21; TEMP 37.1; O2SAT 99
== END 2025-05-05 14:10 | disposition home or self-care (01) ==
PROVIDERS: Visit Provider Internal Medicine
PROC: 0DJ08ZZ Inspection of Upper Intestinal Tract, Via Natural or Artificial Opening Endoscopic (ICD-10-PCS; CPT 43235; principal; 2025-05-05 13:10)
DX: R13.10 Dysphagia, unspecified (principal); Q39.4 Esophageal web; K21.9 Gastro-esophageal reflux disease without esophagitis; M34.1 CR(E)ST syndrome; D50.9 Iron deficiency anemia, unspecified; E03.9 Hypothyroidism, unspecified; F32.A Depression, unspecified; F41.9 Anxiety disorder, unspecified; R15.9 Full incontinence of feces; F17.210 Nicotine dependence, cigarettes, uncomplicated; Z79.82 Long term (current) use of aspirin; Z79.899 Other long term (current) drug therapy
CPT/HCPCS: 43248; C1769; J2003; J2704

== ENCOUNTER → 2025-05-05 11:23 | Outpatient (BNV) | payer OTHER, SELFPAY | PROVIDERS: Visit Provider Internal Medicine | DX: R13.10 Dysphagia, unspecified (principal) | CPT/HCPCS: 43248 ==

== ENCOUNTER → 2025-05-11 11:32 | Outpatient (AMB) | payer OTHER, SELFPAY ==
--- NOTE | 2025-05-11 11:33 | A.OFFVIS_ITS ---
Intake Visit Reasons: EGD post op Okay per Intake Note: Patient follow up for EGD post results International Logistics Analyst Required: No Allergies No Known Allergies Allergy (Verified 05/05/25 12:04) HPI Comments Details: This is a 64-year-old female with past medical history of CREST (followed by Dr Yang), who is referred to our office for dysphagia. Patient reports intermittent dysphagia to solids and liquids ongoing for almost a year now. Has some good days and some bad days. No unintentional weight loss due to this. No abdominal has abdominal discomfort, that does not change with food. No changes in bowel habits. Has not had an upper endoscopy. Last colonoscopy was in 2008. 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 12/29/24: 1. R/o kelli esophagitis (biopsy) 2. Esophageal web (dilation) 3. Hiatal hernia 4. Normal stomach 5. Normal duodenum 6. Nonbleeding AVMs 7. Internal hemorrhoids Path: Esophagus, biopsy: Squamous mucosa with spongiosis, many intraepithelial neutrophils, and few intraepithelial eosinophils (up to 1 per high-power field), consistent with active esophagitis; no fungi identified; no columnar mucosa present. 01/11/25: Dysphagia a lot better since dilation. Has not heard re repeat EGD. Continues to be bloated, despite taking ppi for reflux. This is mostly post prandial. Occurs even when shes not constipated. Bowels are soft. Has occ passive incontinence. Sometimes has soft stool in underwear sometimes hard pellet. 03/30/25: * Esophageal web (dilation) * Gastritis (biopsy) * Normal duodenum Path: Stomach, random, biopsy: Gastric antral/body mucosa with minimal chronic inactive gastritis; negative for H. pylori, intestinal metaplasia and dysplasia. 05/05/25: * Esophageal web (dilation) * Normal stomach * Normal duodenum ?? 05/11/25: Here for televisit. Reports immense improvement in the swallowing. Occ has burning when she eats anything hot - advised to avoid hot or spicy food for another week or so while the dilation is healing. Otherwise, no GI issues. Completed MRI defecography for fecal incontinence at [facility], records pending. [facility] Medical History CREST syndrome Osteopenia Raynaud's disease with gangrene GERD (gastroesophageal reflux disease) Anxiety and depression Hypothyroidism Scleroderma Rheumatoid arthritis Surgical History History of esophagogastroduodenoscopy (EGD) (12/30/24) History of esophagogastroduodenoscopy (EGD) History of amputation of finger of right hand H/O colonoscopy H/O neck surgery Family History Other Scleroderma Social History Household Members: Family Housing: House Are you a primary customer care agent to a significant other at home: No Do you presently have visiting nurse or other home services: No 75 years or older and lives alone: No Alcohol intake: current Alcohol intake frequency: holidays/special occasions only Alcohol type: beer Patient Tobacco Use Status: Former Tobacco user Tobacco use type: Cigarette e-Cigarette/Vaping Use: Never Used service: No Current occupational status: employed 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 Review of Systems Const All systems reviewed & are unremarkable except as noted in HPI and below Physical Exam Exam Exam: Video visit: No acute distress No icterus noted No facial asymmetry Speaking in full sentences Telehealth Telehealth Telehealth Platform: Telephone Location of provider rendering services: practice address Location of patient: address on file Patient Identification confirmed using: Name, : Yes Telehealth method: voice only Patient verbally consented to treatment: Yes Patient verbally consented to billing insurance company: Yes Patient informed of any privacy concerns related to visit: Yes Minutes spent on Phone/Video with Pt.: 12 Assessment & Plan Assessment & Plan (1) Dysphagia: Code(s): R13.10 - Dysphagia, unspecified Category: Medical (2) Esophageal web: Code(s): Q39.4 - Esophageal web Category: Medical (3) Fecal incontinence: Code(s): R15.9 - Full incontinence of feces Category: Medical Plan 1. Dysphagia 2/2 esophageal web. Most recent dilation 17 mm last week. Dyaphagia is now res olved. Pt advised to call for recurrence so we may repeat EGD with dil as needed. 2. Fecal incontinence MR defecography completed a last month. Records pending. Waldo SOARES to get from [facility] 3. CRC screening: Next colo due in 10 years Follow up contingent on defecography results Coding Level of Care Code Tele Est Pt Level 3 (09889) Diagnoses Dysphagia R13.10 Esophageal web Q39.4 Fecal incontinence R15.9
--- OUTSIDE RECORDS SUMMARY | 2025-05-11 13:53 | XMS_ITS | Clinical Summary ---
[facility] Address [address] [place] [address] Care Team Providers Care Chemistry Department Chair Name Role Phone Suki Harrell PA-C Primary Care Provider [phone] Allergies No known active allergies Medications Medication [...] Screening (Mammogram) 2010 COVID-19 Vaccine (2 - 2024-2 6 season) 2025 05/08/2021 Influenza Vaccine (#1) 2025 , 07/07/2022 Fall Risk Assessment 2025 Osteoporosis Screening (DEXA Scan) 2025 Pneumococcal Vaccine (1 of 1 - PCV) 2025 RSV Adult > 60+ Yrs or (1 - 1-dose 75+ series) 2035 Shingrix-Zoster Vaccine Completed 05/29/20 23, 08/30/2022 Hepatitis B Vaccines Aged Out No long er eligible based on patient's age to complete this topic Pneumococcal Vaccine Aged Out No long er eligible based on patient's age to complete this topic RSV Ped < 20 months Aged Out No longe r eligible based on patient's age to complete this topic Care Teams Chemistry Department Chair Relationship Specialty Start Date End Date Suki Harrell PA-C [address] [facility] [address] [facility] [place], [place] [id number] PCP - General Physician Employment Manager 06/06/24
== END ==
LOC: HO.HGI 11:32
PROVIDERS: Visit Provider Internal Medicine
DX: R13.10 Dysphagia, unspecified (principal); Q39.4 Esophageal web; R15.9 Full incontinence of feces
CPT/HCPCS: 98012

== ENCOUNTER 2025-07-31 14:31 | Outpatient (AMB) | payer OTHER, SELFPAY ==
--- NOTE | 2025-07-31 14:36 | A.OFFVIS_ITS ---
Vital Signs 3 07/31/25 14:38 Height 5 ft Weight 123 lb 7.342 oz BMI 24.1 BP 119/65 Blood Pressure Location Lt brachial Position Sitting Pulse 91 Intake Visit Reasons: f/u Dysphagia Intake Note: Gisela presents in the office as a follow up for her dysphagia. CC: RA Waters has a message to give to Dr. Noriega regarding her liver and her numbers. Horse Racer Required: No Allergies No Known Allergies Allergy (Verified 05/05/25 12:04) HPI Comments Details: This is a 64-year-old female with past medical history of CREST (followed by Dr Yang), who is referred to our office for dysphagia. Patient reports intermittent dysphagia to solids and liquids ongoing for almost a year now. Has some good days and some bad days. No unintentional weight loss due to this. No abdominal has abdominal discomfort, that does not change with food. No changes in bowel habits. Has not had an upper endoscopy. Last colonoscopy was in 2008. 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 12/29/24: 1. R/o kelli esophagitis (biopsy) 2. Esophageal web (dilation) 3. Hiatal hernia 4. Normal stomach 5. Normal duodenum 6. Nonbleeding AVMs 7. Internal hemorrhoids Path: Esophagus, biopsy: Squamous mucosa with spongiosis, many intraepithelial neutrophils, and few intraepithelial eosinophils (up to 1 per high-power field), consistent with active esophagitis; no fungi identified; no columnar mucosa present. 01/11/25: Dysphagia a lot better since dilation. Has not heard re repeat EGD. Continues to be bloated, despite taking ppi for reflux. This is mostly post prandial. Occurs even when shes not constipated. Bowels are soft. Has occ passive incontinence. Sometimes has soft stool in underwear sometimes hard pellet. 03/30/25: * Esophageal web (dilation) * Gastritis (biopsy) * Normal duodenum Path: Stomach, random, biopsy: Gastric antral/body mucosa with minimal chronic inactive gastritis; negative for H. pylori, intestinal metaplasia and dysplasia. 05/05/25: * Esophageal web (dilation) * Normal stomach * Normal duodenum ?? 05/11/25: Here for televisit. Reports immense improvement in the swallowing. Occ has burning when she eats anything hot - advised to avoid hot or spicy food for another week or so while the dilation is healing. Otherwise, no GI issues. Completed MRI defecography for fecal incontinence at [facility], records pending. 07/31/25: Here for 3 monthly follow up. In terms of dysphagia, this is resolved. No recurrence of symptoms as of yet. She knows to call us for any recurrence of difficulty swallowing. Pt was referred to [facility] colorectal surgery based on abnormal MR defecography as above however was not contacted by them. Message sent to [place] to follow-up on this. Continues to report significant straining for defecation as well as passive incontinence. She also reports that her new claims manager found a positive AMA as part of her workup. Her liver function tests have historically been normal. We will recheck this. Additionally, she was also admitted to [facility] in May for left-sided arm numbness and tingling. Reports that recent neurological workup, she has been determined to have possible carotid artery stenosis and is on aspirin and Plavix therapy for now. She is due for repeat imaging through her neurologist in 3 months. [facility] Medical History (Updated 07/31/25 @ 16:26 by Dawn Noriega MD) CREST syndrome Osteopenia Raynaud's disease with gangrene GERD (gastroesophageal reflux disease) Anxiety and depression Hypothyroidism Scleroderma Rheumatoid arthritis Surgical History History of esophagogastroduodenoscopy (EGD) (12/30/24) History of esophagogastroduodenoscopy (EGD) History of amputation of finger of right hand H/O colonoscopy H/O neck surgery Family History Other Scleroderma Social History Household Members: Family Housing: House Are you a primary before and after school daycare worker to a significant other at home: No Do you presently have visiting nurse or other home services: No 75 years or older and lives alone: No Alcohol intake: current Alcohol intake frequency: holidays/special occasions only Alcohol type: beer Patient Tobacco Use Status: Former Tobacco user Tobacco use type: Cigarette e-Cigarette/Vaping Use: Never Used service: No Current occupational status: employed 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 Review of Systems Const All systems reviewed & are unremarkable except as noted in HPI and below Physical Exam Exam Exam: No apparent distress Nonicteric Abdomen soft, nondistended Alert and oriented x3, normal gait Vital Signs: Last Vital Signs Pulse 91 07/31/25 14:38 BP 119/65 07/31/25 14:38 BMI result Body Mass Index 24.1 Assessment & Plan Assessment & Plan (1) Antimitochondrial antibody positive: Code(s): R76.89 - Other specified abnormal immunological findings in serum Category: Medical (2) Fecal incontinence: Code(s): R15.9 - Full incontinence of feces Category: Medical (3) Anal sphincter incontinence: Code(s): R15.9 - Full incontinence of feces Category: Medical (4) Dysphagia: Code(s): R13.10 - Dysphagia, unspecified Category: Medical (5) CREST syndrome: Code(s): M34.1 - CR(E)ST syndrome Category: Medical Plan 1. Elevated anti-mitochondrial antibody Incidentally discovered by Rheum. LFTs normal 2023. Plan: - Recheck the anti-mitochondrial antibody, LFTs - US Abd 2. Pelvic floor dysfunction with rectocele and fecal incontinence Has abnormal defecography as above. Plan: - Follow up on [facility] colorectal surg referral 3. Esophageal web The patient is currently asymptomatic following a prior endoscopic dilation for an esophageal stricture. Plan: - Pt to call the office for recurrence of sx for repeat endoscopy. Follow up 3 months Orders: Orders 2 Liver Panel Today R76.89 - Other specified abnormal immunological findings in serum Mitochondrial Antibody Today R76.89 - Other specified abnormal immunological findings in serum US abdomen complete Today R76.89 - Other specified abnormal immunological findings in serum Patient Instructions: - My office will reach out to the colorectal surgery office to find out about the delay in your appointment. - Please go for blood work to recheck the liver antibody that your claims manager found. - I am also ordering an ultrasound of your liver, please have this done.. - If you start having trouble swallowing again, please call our office, and we can schedule another endoscopy to stretch your esophagus. Coding Level of Care Code Complex visit Add On G2211 Diagnoses Antimitochondrial antibody positive R76.89 Fecal incontinence R15.9 Anal sphincter incontinence R15.9 Dysphagia R13.10 CREST syndrome M34.1
[2025-07-31 14:38] VITALS: BP 119/65; PULSE 91; BMI 24.1
--- OUTSIDE RECORDS SUMMARY | 2025-07-31 23:37 | XMS_ITS | Clinical Summary ---
Author Organization [facility] Prior to 01/21/[address] [place] [id number] Care Team Providers Care Computer Information Systems Professor Name Role Phone Suki Harrell PA-C Primary Care Provider [phone] Allergies No known active allergies Medications Medication [...] season) 2025 05/08/2021 Influenza Vaccine (#1) 2025 3, 07/07/2022 Fall Risk Assessment 2025 Osteoporosis Screening [...] age to complete this topic Care Teams Computer Information Systems Professor Relationship Specialty Start Date End Date Suki Harrell PA-C [address] [place] [address] PCP - General Physician Waste Paper Hammermill Operator 06/06/24
== END 2025-07-31 15:29 | disposition home or self-care (01) ==
LOC: HO.HGI 14:32
PROVIDERS: Visit Provider Internal Medicine
DX: R76.89 Other specified abnormal immunological findings in serum (principal); R15.9 Full incontinence of feces; R13.10 Dysphagia, unspecified; M34.1 CR(E)ST syndrome
CPT/HCPCS: 99213; G2211